=== PATIENT | male | born 1995 | race Native Hawaiian/Other Pacific Islander ===

== ENCOUNTER 2020-05-23 12:32 | Outpatient (REF) | payer OTHER, MEDICAID, SELFPAY | END 2020-05-23 12:33 | disposition home or self-care (01) | LOC: HO.LAB 12:32 | PROVIDERS: PCP Nurse Practitioner Family; Visit Provider Internal Medicine | DX: Z20.828 Contact with and (suspected) exposure to other viral communicable diseases (principal) | CPT/HCPCS: C9803; U0003 ==

== ENCOUNTER 2020-06-22 14:10 | Outpatient (REF) | payer OTHER, MEDICAID, SELFPAY | END 2020-06-22 14:11 | disposition home or self-care (01) | LOC: HO.LAB 14:10 | PROVIDERS: PCP Nurse Practitioner Family; Visit Provider Internal Medicine | DX: Z20.828 Contact with and (suspected) exposure to other viral communicable diseases (principal) | CPT/HCPCS: C9803; U0003 ==

== ENCOUNTER 2020-07-12 10:39 | Outpatient (REF) | payer MEDICAID, SELFPAY | END 2020-07-12 10:40 | disposition home or self-care (01) | LOC: HO.LAB 10:39 | PROVIDERS: Visit Provider Internal Medicine | DX: Z20.828 Contact with and (suspected) exposure to other viral communicable diseases (principal) | CPT/HCPCS: C9803; U0003 ==

== ENCOUNTER 2020-07-25 17:16 | Outpatient (REF) | payer MEDICAID, SELFPAY | END 2020-07-25 17:17 | disposition home or self-care (01) | LOC: HO.LAB 17:16 | PROVIDERS: Visit Provider Internal Medicine | DX: Z20.822 Contact with and (suspected) exposure to COVID-19 (principal) | CPT/HCPCS: 36415; C9803; U0003 ==

== ENCOUNTER 2020-08-08 17:13 | Outpatient (REF) | payer OTHER, MEDICAID, SELFPAY | END 2020-08-08 17:14 | disposition home or self-care (01) | LOC: HO.LAB 17:13 | PROVIDERS: Visit Provider Internal Medicine | DX: Z20.822 Contact with and (suspected) exposure to COVID-19 (principal) | CPT/HCPCS: 36415; C9803; U0003 ==

== ENCOUNTER 2020-08-18 14:25 | Outpatient (REF) | payer MEDICAID, SELFPAY | END 2020-08-18 14:26 | disposition home or self-care (01) | LOC: HO.LAB 14:25 | PROVIDERS: Visit Provider Internal Medicine | DX: Z20.822 Contact with and (suspected) exposure to COVID-19 (principal) | CPT/HCPCS: 36415; C9803; U0003; U0005 ==

== ENCOUNTER 2020-09-07 12:27 | Outpatient (REF) | payer OTHER, MEDICAID, SELFPAY | END 2020-09-07 12:28 | disposition home or self-care (01) | LOC: HO.LAB 12:27 | PROVIDERS: Visit Provider Internal Medicine | DX: Z20.822 Contact with and (suspected) exposure to COVID-19 (principal) | CPT/HCPCS: 36415; C9803; U0003; U0005 ==

== ENCOUNTER 2021-01-03 10:44 | Outpatient (REF) | payer OTHER, MEDICAID, SELFPAY ==
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
== END 2021-01-03 10:45 | disposition home or self-care (01) ==
LOC: HO.HMGCX 10:44
PROVIDERS: PCP Nurse Practitioner Family; Visit Provider Nurse Practitioner Family
DX: M25.511 Pain in right shoulder (principal); M25.551 Pain in right hip; V29.9XXA Motorcycle rider (driver) (passenger) injured in unspecified traffic accident, initial encounter
CPT/HCPCS: 73030; 73502

== ENCOUNTER 2021-01-30 12:16 | Outpatient (REF) | payer OTHER, MEDICAID, SELFPAY ==
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
== END 2021-01-30 12:17 | disposition home or self-care (01) ==
LOC: HO.HMGCX 12:16
PROVIDERS: PCP Nurse Practitioner Family; Visit Provider Hospitalist
DX: S49.91XD Unspecified injury of right shoulder and upper arm, subsequent encounter (principal)
CPT/HCPCS: 73030

== ENCOUNTER 2024-01-27 19:47 | Emergency (ER) | payer MEDICAID, SELFPAY ==
--- NOTE | ~2024-01-27 | XR_ITS ---
EXAMINATION: XR CHEST CLINICAL INFORMATION: Chest the sensitivity, tightness and pain for one week on left side. COMPARISON: Chest radiograph dated 10/14/2017. TECHNIQUE: 2 views of the chest were obtained. FINDINGS: The heart is normal in size. The lungs are clear. Pleural spaces are clear. No pneumothorax. No acute osseous abnormality. XR/XR chest 2V IMPRESSION: No acute cardiopulmonary disease.
--- NOTE | 2024-01-27 19:49 | ECG_ITS ---
Test Reason : CHEST PAIN Blood Pressure : / mmHG Vent. Rate : 069 BPM Atrial Rate : 069 BPM P-R Int : 176 ms QRS Dur : 088 ms QT Int : 396 ms P-R-T Axes : 028 039 029 degrees QTc Int : 424 ms Normal sinus rhythm Normal ECG When compared with ECG of 14-OCT-2017 17:47, No significant change was found Referred By: Lucia Powell Electronically Signed By:THAIS CRUZ MD
[2024-01-27 19:55] VITALS: BP 121/67; PULSE 65; RESP 18; TEMP 36.6; O2SAT 99; BMI 32.3
--- NOTE | 2024-01-27 20:02 | ED_ITS ---
HPI - Chest Pain General Chief Complaint: Chest Pain Stated Complaint: Chest pain x1 week Time Seen by Provider: 01/27/24 22:50 Source: patient Mode of arrival: ambulatory Limitations: no limitations History of Present Illness HPI narrative: Patient is a 28 old male who presents emergency department for evaluation of chest pain. Reports approximately 2 weeks ago he felt a tightness in his chest that felt very stiff, after beginning a new workout regimen with pushups. He was attempting to stretch the area daily, performing [id number] exercises to the shoulders to ?loosen the chest muscles?. Over the past week, he reports feeling increased pain over the left side of his chest, has been there pretty constantly, is described as a tightness, increases when pressing on this area of the chest. He denies history of similar pain in the past, he denies associated dizziness, lightheadedness, neck pain, neck stiffness, shortness of breath, nausea, vomiting, abdominal pain, numbness or tingling of his extremities. He denies any pertinent past medical history. Denies any recent trauma or injury. Related Data Previous Rx's ?Medication ?Instructions ?Recorded dexamethasone 4 mg tablet 4 mg PO .COMPLEX #18 tabs 09/12/20 prednisone 20 mg tablet 20 mg PO .COMPLEX #18 tabs 01/30/21 cyclobenzaprine 10 mg tablet 10 mg PO TID PRN muscle spasm #30 02/06/21 tabs naproxen 500 mg tablet 500 mg PO BID PRN pain #30 tabs 02/06/21 Allergies Allergy/AdvReac Type Severity Reaction Status Date / Time penicillin V Allergy Unknown Hives, Verified 01/27/24 20:00 Anaphylaxis Penicillins [PENICILLINS] Allergy Unknown UNKNOWN Verified 01/27/24 20:00 Review of Systems 2 Review of Systems: Yes all other systems are reviewed and are negative PMFSH Past Medical History Attestation statement: The following information was validated with the patient. Source: old records reviewed Social History Social History Smoked in Last 30 Days: No Use of substances other than those prescribed or required for medical reasons: No Advance Directives: No Advance Directives Information Provided: No Do you have a plan to hurt others: No Plan Physical Exam 2 Vital Signs: Vital Signs: Last Vital Signs Temp 98.0 F 01/27/24 23:45 Pulse 83 01/27/24 23:45 Resp 16 01/27/24 23:45 BP 152/98 H 01/27/24 23:45 Pulse Ox 96 01/27/24 23:45 O2 Del Method Room Air 01/27/24 23:45 BMI result Body Mass Index 32.3 Appearance: Alert.?Oriented to person, place and time. No acute distress.?Normal affect. Eyes: Pupils equal, round and reactive to light.? ENT: Pharynx normal.?? Neck: Normal inspection.? Neck supple.?? CVS: Heart sounds normal. Normal heart rate and rhythm.? Pulses normal.?? Respiratory: No respiratory distress.? Lung sounds clear to auscultation bilaterally??tenderness upon palpation of the left anterior chest wall Abdomen: Soft and non-tender. Normoactive bowel sounds. No pulsatile mass.?? Skin: Skin warm and dry.? Normal skin color.? Extremities: No lower extremity edema.? No calf ttp? Neuro: Moves all extremities spontaneously. Sensation intact bilaterally. Ambulates with normal steady gait. Course Course Course Narrative: RME performed by Lucia Powell PA-C. Patient is a 28 year old assigned male at presenting to the emergency department with chest pain. Detailed physical exam and review of systems are deferred to the sheet metal technician. EKG, labs, imaging, and swabs ordered. Patient placed back in the waiting room pending room availability and results. Medical Decision Making Medical Decision Making MDM Narrative: Patient is a 28-year-old male who presents emergency department for evaluation of chest pain as per HPI. Overall appears well, nontoxic, afebrile. He is obese, otherwise does not have acute risk factors for ACS denies significant family cardiac history. PERC negative, unlikely pulmonary embolism. No recent URI symptoms to suggest infectious etiology. Based on history and physical examination I suspect that symptoms are most consistent with strain versus costochondritis. CXR is without evidence of consolidation infiltrate to suggest pneumonia. EKG reveals a normal sinus rhythm with ventricular rate of 69, QTC 424, high sensitive troponin below detectable limits, not consistent with ACS. Viral panel is negative. CBC and CMP are unremarkable. Discussed rest, ice/heat, anti-inflammatory; NSAID, outpatient follow-up with primary care provider. Advised strict return precautions. All questions answered. Stable for discharge home Differential Diagnosis Differential Diagnoses: The differential diagnosis associated with the presentation includes (See narrative above) Admission/Observation Consideration of admission/observation: Escalation of care including admission/observation considered (See narrative above) Lab Data MDM Lab Attestation statement: I reviewed the patient's lab results. (See narrative above) 01/27/24 20:37 01/27/24 20:37 Labs: Lab Results 01/27/24 Range/Units 20:37 WBC 8.8 (4.8-10.8) X10*3/uL RBC 4.88 (4.60-5.80) X10*6/uL Hgb 14.6 (14.0-18.0) g/dl Hct 42.7 (42.0-52.0) % MCV 87.5 (80.0-98.0) fL MCH 29.9 (27.0-33.0) pg MCHC 34.2 (31.0-36.0) g/dl RDW 12.3 (11.0-16.0) % Plt Count 195 (160-400) X10*3/uL MPV 10.1 (9.4-12.4) fL Immature Gran % (Auto) 0.2 (0.0-0.4) % Neut % (Auto) 59.9 (45-73) % Lymph % (Auto) 33.3 (20-40) % [place] % (Auto) 5.6 (2-11) % Eos % (Auto) 0.7 (0-4) % Baso % (Auto) 0.3 (0-2) % Lymph # (Auto) 2.9 (1.2-4.9) X10*3/uL [place] # (Auto) 0.5 (0.1-1.2) X10*3/uL Eos # (Auto) 0.1 (0.0-0.4) X10*3/uL Baso # (Auto) 0.0 (0.0-0.2) X10*3/uL Abs Immat Gran (auto) 0.02 (0.00-0.03) X10*3/uL Absolute Neuts (auto) 5.2 (2.0-8.3) x10*3/uL Absolute Nucleated RBC 0.000 (0.0-0.012) X10*3/uL Nucleated RBC % (auto) 0.0 (0.0-0.2) /100WBC Sodium 144 (135-145) mmol/L Potassium 4.2 (3.3-5.1) mmol/L Chloride 107 (96-108) mmol/L Carbon Dioxide 28 (22-29) mmol/L Anion Gap 13 (12-20) BUN 16 (9-16) mg/dL Creatinine 0.95 (0.5-1.4) mg/dL Estim Creat Clear Calc 131.9 Estimated GFR > 60 Random Glucose 87 (60-115) mg/dL Calcium 9.9 (8.4-10.2) mg/dL Magnesium 2.1 (1.6-2.6) mg/dL Total Bilirubin 0.9 (0.0-1.0) mg/dL AST 15 (5-37) U/L ALT 17 (0-40) U/L Alkaline Phosphatase 65 (39-117) U/L Troponin I High Sens < 2.7 (<3.5-35.0) ng/L Total Protein 7.9 (6.5-8.0) g/dL Albumin 4.6 (3.5-5.0) g/dL Influenza Type A (PCR) NEGATIVE (Negative) Influenza Type B (PCR) NEGATIVE (Negative) RSV RNA Qual (PCR) NEGATIVE (Negative) SARS-CoV-2 RNA (RT-PCR) NEGATIVE (Negative) Independent Interpretation I performed an independent interpretation of an: EKG (See narrative above) and Plain X-Ray (See narrative above) Radiology Impression Discussion of test interpretation with radiology: I have reviewed the radiologist's reading. Radiologist Impression: XR/XR chest 2V IMPRESSION: No acute cardiopulmonary disease. External Record Review External record reviewed: Outpatient record Prescription Management I considered prescription management with: Pain Medication (See narrative above) Discharge Plan Discharge Clinical Impression: Chest pain Patient Disposition: Home, Self-Care Instructions: Noncardiac Chest Pain (ED) Additional Instructions: As discussed, please be sure to rest, perform gentle stretching exercises but avoid any heavy lifting, pushups etc. that may worsen your pain. You can take ibuprofen 200 mg, 3 tablets (600mg) every 6-8 hours as needed for pain, in addition to Tylenol 500 mg, 2 tablets (1,000mg) every 4-6 hours as needed for pain, but not to exceed 3 doses daily (3,000mg).? Follow-up with your primary care provider. Return back to emergency department any new or worsening symptoms or concerns Prescriptions: No Action dexamethasone 4 mg tablet 4 mg PO .COMPLEX Qty: 18 0RF Rx Instructions: 4 mg PO One p.o. t.i.d. for 3 days, 1 p.o. b.i.d. for 3 days, 1 p.o. daily for 3 days; prednisone 20 mg tablet 20 mg PO .COMPLEX Qty: 18 0RF Rx Instructions: 20 mg PO 3 p.o. daily for 3 days followed by 2 p.o. daily for 3 days followed by 1 p.o. daily for 3 days; cyclobenzaprine 10 mg tablet 10 mg PO TID PRN (Reason: muscle spasm) Qty: 30 0RF naproxen 500 mg tablet 500 mg PO BID PRN (Reason: pain) Qty: 30 0RF Referrals: Ahsan Kirkpatrick, APPLICATION PERFORMANCE ENGINEER-BC [Primary Care Provider] - Interventions: ED Discharge Assessment Last Done: 01/27/24 23:45 Discharge Date/Time: 01/27/24 23:46 Print Language: Sami
[2024-01-27 20:42] LABS: Basophils Percent Auto 0.3 % (0-2); Eosinophils Absolute Auto 0.1 X10*3/uL (0.0-0.4); Eosinophils Percent Auto 0.7 % (0-4); Hematocrit 42.7 % (42.0-52.0); Hemoglobin 14.6 g/dl (14.0-18.0); Imm Gran Abs Auto 0.02 X10*3/uL (0.00-0.03); Imm Gran Pct Auto 0.2 % (0.0-0.4); Lymphocytes Absolute Auto 2.9 X10*3/uL (1.2-4.9); Lymphocytes Percent Auto 33.3 % (20-40); MANUAL DIFF FLAG NO; Mean Corpuscular HGB Conc 34.2 g/dl (31.0-36.0); Mean Corpuscular Hemoglobin 29.9 pg (27.0-33.0); Mean Corpuscular Volume 87.5 fL (80.0-98.0); Mean Platelet Volume 10.1 fL (9.4-12.4); Monocytes Absolute Auto 0.5 X10*3/uL (0.1-1.2); Monocytes Percent Auto 5.6 % (2-11); Neutrophils Absolute Auto 5.2 x10*3/uL (2.0-8.3); Neutrophils Percent Auto 59.9 % (45-73); Platelet Count 195 X10*3/uL (160-400); Red Blood Count 4.88 X10*6/uL (4.60-5.80); Red Cell Distribution Width 12.3 % (11.0-16.0); White Blood Count 8.8 X10*3/uL (4.8-10.8)
[2024-01-27 21:07] LABS: Alanine Aminotransferase 17 U/L (0-40); Albumin Level 4.6 g/dL (3.5-5.0); Alkaline Phosphatase 65 U/L (39-117); Anion Gap 13 (12-20); Aspartate Amino Transferase 15 U/L (5-37); Bilirubin Total 0.9 mg/dL (0.0-1.0); Blood Urea Nitrogen 16 mg/dL (9-16); Calcium 9.9 mg/dL (8.4-10.2); Carbon Dioxide 28 mmol/L (22-29); Chloride 107 mmol/L (96-108); Creatinine Clr Calc Pharmacy 131.9; Estimated Glomerular Filt Rate > 60; Glucose Random 87 mg/dL (60-115); Magnesium 2.1 mg/dL (1.6-2.6); Potassium 4.2 mmol/L (3.3-5.1); Sodium 144 mmol/L (135-145); Total Protein 7.9 g/dL (6.5-8.0)
[2024-01-27 21:15] LABS: Troponin-I High Sensitivity < 2.7 ng/L (<3.5-35.0)
[2024-01-27 21:18] LABS: Influenza A PCR NEGATIVE (Negative); Influenza B PCR NEGATIVE (Negative); Resp Syncy Virus RNA Qual PCR NEGATIVE (Negative); SARS COV2 PCR INHOUSE NEGATIVE (Negative)
[2024-01-27 23:09] VITALS: BP 121/75; PULSE 66; RESP 16; O2SAT 100
[2024-01-27 23:36] VITALS: BP 125/74; PULSE 62; RESP 17; O2SAT 100
[2024-01-27 23:45] VITALS: BP 152/98; PULSE 83; RESP 16; TEMP 36.7; O2SAT 96
== END 2024-01-27 23:46 | disposition home or self-care (01) ==
PROVIDERS: Physician Assistant Medical; Emergency Provider Emergency Medicine; PCP Nurse Practitioner Family
DX: R07.89 Other chest pain (principal); Z03.818 Encounter for observation for suspected exposure to other biological agents ruled out; Z79.899 Other long term (current) drug therapy
CPT/HCPCS: 0241U; 71046; 80053; 83735; 84484; 85025; 93005; 99283; 99284

== ENCOUNTER → 2024-01-27 19:49 | Outpatient (BNV) | payer MEDICAID, SELFPAY | PROVIDERS: Emergency Provider Emergency Medicine; PCP Nurse Practitioner Family; Visit Provider Internal Medicine Cardiovascular Disease | DX: R07.9 Chest pain, unspecified (principal) | CPT/HCPCS: 93010 ==

== ENCOUNTER 2024-02-29 21:52 | Emergency (ER) | payer MEDICAID, SELFPAY ==
--- NOTE | 2024-02-29 | ECG_ITS ---
Test Reason : chest pain Blood Pressure : / mmHG Vent. Rate : 071 BPM Atrial Rate : 071 BPM P-R Int : 172 ms QRS Dur : 088 ms QT Int : 386 ms P-R-T Axes : 037 039 032 degrees QTc Int : 419 ms Normal sinus rhythm Normal ECG When compared with ECG of 27-JAN-2024 19:50, No significant change was found Referred By: Generic ED Physician Electronically Signed By:ZORAIDA RICHARDS
--- NOTE | ~2024-02-29 | XR_ITS ---
EXAMINATION: XR CHEST CLINICAL INFORMATION: Chest pain. COMPARISON: 01/27/2024. TECHNIQUE: 2 views of the chest were obtained. FINDINGS: No significant abnormality is noted involving the heart, lungs, mediastinum, bony thorax or soft tissues. XR/XR chest 2V IMPRESSION: Unremarkable examination.
[2024-02-29 22:07] VITALS: BP 124/85; PULSE 76; RESP 17; TEMP 36.7; O2SAT 97; BMI 31.8
[2024-02-29 22:39] LABS: MANUAL DIFF FLAG NO
[2024-02-29 22:42] LABS: Basophils Percent Auto 0.4 % (0-2); Eosinophils Absolute Auto 0.1 X10*3/uL (0.0-0.4); Eosinophils Percent Auto 0.6 % (0-4); Hematocrit 42.3 % (42.0-52.0); Hemoglobin 14.6 g/dl (14.0-18.0); Imm Gran Abs Auto 0.01 X10*3/uL (0.00-0.03); Imm Gran Pct Auto 0.1 % (0.0-0.4); Lymphocytes Absolute Auto 3.2 X10*3/uL (1.2-4.9); Lymphocytes Percent Auto 37.3 % (20-40); Mean Corpuscular HGB Conc 34.5 g/dl (31.0-36.0); Mean Platelet Volume 10.1 fL (9.4-12.4); Monocytes Absolute Auto 0.6 X10*3/uL (0.1-1.2); Monocytes Percent Auto 6.9 % (2-11); Neutrophils Absolute Auto 4.6 x10*3/uL (2.0-8.3); Neutrophils Percent Auto 54.7 % (45-73); Platelet Count 180 X10*3/uL (160-400); Red Blood Count 4.86 X10*6/uL (4.60-5.80); Red Cell Distribution Width 11.9 % (11.0-16.0); White Blood Count 8.4 X10*3/uL (4.8-10.8)
[2024-02-29 22:57] LABS: Alanine Aminotransferase 14 U/L (0-40); Albumin Level 4.6 g/dL (3.5-5.0); Alkaline Phosphatase 70 U/L (39-117); Anion Gap 12 (12-20); Aspartate Amino Transferase 13 U/L (5-37); Bilirubin Direct 0.2 mg/dL (0.0-0.5); Bilirubin Total 0.9 mg/dL (0.0-1.0); Blood Urea Nitrogen 16 mg/dL (9-16); Calcium 9.7 mg/dL (8.4-10.2); Carbon Dioxide 27 mmol/L (22-29); Chloride 108 mmol/L (96-108); Creatinine Clr Calc Pharmacy 133.9; Estimated Glomerular Filt Rate > 60; Glucose Random 95 mg/dL (60-115); Lipase 15 U/L (8-78); Potassium 3.7 mmol/L (3.3-5.1); Sodium 143 mmol/L (135-145); Total Protein 7.9 g/dL (6.5-8.0)
[2024-02-29 23:04] LABS: Troponin-I High Sensitivity < 2.7 ng/L (<3.5-35.0)
--- NOTE | 2024-03-01 00:14 | ED.CHESTPAIN ---
HPI - Chest Pain General Chief Complaint: Chest Pain Stated Complaint: chest pain Time Seen by Provider: 03/01/24 00:14 History of Present Illness ED Provider: Lena WHITESIDE narrative: 28-year-old male who presents complaining of ongoing discomfort that he experiences in his chest. He was here one month ago and was diagnosed with chest wall pain. He says that he did not get any better with ibuprofen. He says that he has had to stop weight lifting and doing pushups because of the pain. He now feels that his chest wall looks different. The patient says that he wanted to follow up with his PCP but was given an appointment in March. The patient says, as a separate issue, that he has become addicted to pills that he buys on the street that he thinks might be like Percocet. He wonders if they might contain fentanyl. He says that he has contacted detox is as an outpatient but has not been able to get a referral. He says that he has been taking the pills for about 2 years. The patient does not take any regular medications aside from the pills he buys on the streets. Related Data Previous Rx's ?Medication ?Instructions ?Recorded dexamethasone 4 mg tablet 4 mg PO .COMPLEX #18 tabs 09/12/20 prednisone 20 mg tablet 20 mg PO .COMPLEX #18 tabs 01/30/21 cyclobenzaprine 10 mg tablet 10 mg PO TID PRN muscle spasm #30 02/06/21 tabs naproxen 500 mg tablet 500 mg PO BID PRN pain #30 tabs 02/06/21 Allergies Allergy/AdvReac Type Severity Reaction Status Date / Time penicillin V Allergy Unknown Hives, Verified 02/29/24 22:10 Anaphylaxis Penicillins [PENICILLINS] Allergy Unknown UNKNOWN Verified 01/27/24 20:00 Review of Systems Review of Systems: Yes all other systems are reviewed and are negative [facility] Social History Social History Advance Directives: No Advance Directives Information Provided: No Do you have a plan to hurt others: No Plan Physical Exam Vital Signs: Vital Signs: Last Vital Signs Temp 98.4 F 03/01/24 01:42 Pulse 70 03/01/24 01:42 Resp 12 03/01/24 01:42 BP 105/61 03/01/24 01:42 Pulse Ox 98 03/01/24 01:42 O2 Del Method Room Air 03/01/24 01:42 BMI result Body Mass Index 31.8 Const: Other: The patient is awake and alert. He does not appear in any distress. He was very verbose about his symptoms. HEENT: Head: Yes normal to inspection Face and sinus: Yes normal facial exam Mouth: Normal oral and palatal mucosa present Throat: Yes posterior oropharynx normal Eyes: General: appearance normal, both eyes and all related structures Alignment and Position: alignment normal Eyelids: Yes eyelids normal Conjunctivae: conjunctivae normal Pupils: Equal, round and reactive pupils present EOM: EOMs intact bilaterally Neck: Neck: Yes normal visual inspection, Yes full ROM, Yes no lymphadenopathy and Yes no meningeal signs Chest: Other: The patient has a great deal of generalized anterior chest wall tenderness. He winces with palpation of the anterior chest. Resp: Effort & Inspection: normal respiratory effort Auscultation: clear to auscultation bilaterally Cardio: Rate: regular rate Rhythm: regular rhythm Heart sounds: S1 normal heart sound present and S2 normal heart sound present GI: Other: Abdomen is soft and nontender Skin: Other: Skin is dry and unremarkable. No lesions or bruises or any other abnormalities. Neuro: Other: The patient was awake and alert. Cranial nerves 2-12 grossly intact. Moves all 4 extremities normally and seems grossly neurologically intact. General: no meningeal signs Cranial nerves: Yes Equal, round and reactive pupils present Extrem: Other: No calf swelling or tenderness. No asymmetry. No edema. Medications Administered Discontinued Medications Generic Name Dose Route Start Last Admin Trade Name Marcel PRN Reason Stop Dose Admin Acetaminophen 975 mg 03/01/24 01:46 03/01/24 01:51 Acetaminophen 325 Mg Tablet PO 03/01/24 01:47 975 mg ONCE ONE Administration Ketorolac Tromethamine 30 mg 03/01/24 01:45 03/01/24 01:51 Ketorolac Tromethamine 30 Mg/Ml Vial IM 03/01/24 01:46 30 mg ONCE ONE Administration Medical Decision Making Medical Decision Making [facility] Narrative: The patient is a 28-year-old male who returns to the emergency room with a complaint of chest pain that seems highly consistent with chest wall pain. He has exquisite of the anterior chest on both sides of the sternum and this tenderness seems to reproduce his pain. He is PERC negative. His EKG is normal. His troponin is negative. His symptoms have been bothering him on an almost daily basis for a month. He looks entirely well. The patient also told me that he has been taking that like pills that he buys on the street for approximately 2 years and he thinks he has probably addicted to these medications. He denies any IV drug use. I explained to the patient that his chest pain syndrome still seems to be chest wall pain. I did not think there was any problem with his heart or any other internal organ which might put his health at risk. I further explained I thought a larger issue for him was his abuse of the medication advise on the street. He says he has called [facility] for detox but was told that he needed a referral from his PCP. I will give him the contact information for the [facility] addiction Medicine office. Otherwise the patient looked well and felt comfortable being discharged. Lab Data 02/29/24 22:35 02/29/24 22:35 Labs: Lab Results 02/29/24 Range/Units 22:35 WBC 8.4 (4.8-10.8) X10*3/uL RBC 4.86 (4.60-5.80) X10*6/uL Hgb 14.6 (14.0-18.0) g/dl Hct 42.3 (42.0-52.0) % MCV 87.0 (80.0-98.0) fL MCH 30.0 (27.0-33.0) pg MCHC 34.5 (31.0-36.0) g/dl RDW 11.9 (11.0-16.0) % Plt Count 180 (160-400) X10*3/uL MPV 10.1 (9.4-12.4) fL Immature Gran % (Auto) 0.1 (0.0-0.4) % Neut % (Auto) 54.7 (45-73) % Lymph % (Auto) 37.3 (20-40) % [place] % (Auto) 6.9 (2-11) % Eos % (Auto) 0.6 (0-4) % Baso % (Auto) 0.4 (0-2) % Lymph # (Auto) 3.2 (1.2-4.9) X10*3/uL [place] # (Auto) 0.6 (0.1-1.2) X10*3/uL Eos # (Auto) 0.1 (0.0-0.4) X10*3/uL Baso # (Auto) 0.0 (0.0-0.2) X10*3/uL Abs Immat Gran (auto) 0.01 (0.00-0.03) X10*3/uL Absolute Neuts (auto) 4.6 (2.0-8.3) x10*3/uL Absolute Nucleated RBC 0.000 (0.0-0.012) X10*3/uL Nucleated RBC % (auto) 0.0 (0.0-0.2) /100WBC Sodium 143 (135-145) mmol/L Potassium 3.7 (3.3-5.1) mmol/L Chloride 108 (96-108) mmol/L Carbon Dioxide 27 (22-29) mmol/L Anion Gap 12 (12-20) BUN 16 (9-16) mg/dL Creatinine 0.93 (0.5-1.4) mg/dL Estim Creat Clear Calc 133.9 Estimated GFR > 60 Random Glucose 95 (60-115) mg/dL Calcium 9.7 (8.4-10.2) mg/dL Total Bilirubin 0.9 (0.0-1.0) mg/dL Direct Bilirubin 0.2 (0.0-0.5) mg/dL AST 13 (5-37) U/L ALT 14 (0-40) U/L Alkaline Phosphatase 70 (39-117) U/L Troponin I High Sens < 2.7 (<3.5-35.0) ng/L Total Protein 7.9 (6.5-8.0) g/dL Albumin 4.6 (3.5-5.0) g/dL Lipase 15 (8-78) U/L Independent Interpretation I performed an independent interpretation of an: EKG Interpretation: EKG at 21:50 shows normal sinus rhythm at 71 beats per minute. This is a normal EKG. No change from previous EKG. Discharge Plan Discharge Clinical Impression: Chest wall pain, Substance use disorder Patient Disposition: Home, Self-Care Instructions: Chest Wall Pain (ED) Additional Instructions: It still seems to be the case that your chest pain seems to be coming from your chest wall rather than a problem with your heart or any other internal organ. May use ibuprofen and acetaminophen as needed for the pain. I suspect that your addiction to the pills that you have been buying on the street is probably more worrisome. You have been provided with the contact information for the addiction Medicine office here at [facility]. Please call the office on Saturday morning to try to get an appointment to discuss your situation further. Also plan on following up with your regular doctor. Return to the emergency room if worse. Prescriptions: No Action dexamethasone 4 mg tablet 4 mg PO .COMPLEX Qty: 18 0RF Rx Instructions: 4 mg PO One p.o. t.i.d. for 3 days, 1 p.o. b.i.d. for 3 days, 1 p.o. daily for 3 days; prednisone 20 mg tablet 20 mg PO .COMPLEX Qty: 18 0RF Rx Instructions: 20 mg PO 3 p.o. daily for 3 days followed by 2 p.o. daily for 3 days followed by 1 p.o. daily for 3 days; cyclobenzaprine 10 mg tablet 10 mg PO TID PRN (Reason: muscle spasm) Qty: 30 0RF naproxen 500 mg tablet 500 mg PO BID PRN (Reason: pain) Qty: 30 0RF Referrals: Ahsan Kirkpatrick FNP-SONYA [Primary Care Provider] - (chest wall pain, substance use disorder) Soheila Gatica CNP [Nurse Practitioner] - (opioid addiction) Print Language: Turkish
[2024-03-01 00:16] VITALS: BP 119/71; PULSE 65; RESP 16; TEMP 36.8; O2SAT 98
[2024-03-01 01:42] VITALS: BP 105/61; PULSE 70; RESP 12; TEMP 36.9; O2SAT 98
[2024-03-01] MEDS: Ketorolac Tromethamine 30 MG/ML VIAL IM (01:51)
[2024-03-01] MEDS: Acetaminophen 325 MG TABLET 975 MG PO (01:51)
[2024-03-01 02:00] VITALS: BP 105/61; PULSE 70; RESP 12; TEMP 36.9; O2SAT 98
== END 2024-03-01 02:00 | disposition home or self-care (01) ==
PROVIDERS: Emergency Provider Emergency Medicine; PCP Nurse Practitioner Family
DX: R07.89 Other chest pain (principal); F19.90 Other psychoactive substance use, unspecified, uncomplicated
CPT/HCPCS: 36415; 71046; 80048; 80076; 83690; 84484; 85025; 93005; 96372; 99284; J1885

== ENCOUNTER 2024-04-13 15:05 | Outpatient (AMB) | payer MEDICAID, SELFPAY ==
[2024-04-13 15:12] VITALS: BP 102/68; PULSE 88; O2SAT 99; BMI 30.6
--- NOTE | 2024-04-13 15:12 | A.OFFPC_ITS ---
Vital Signs 04/13/24 15:12 Height 5 ft 9 in Weight 207 lb BMI 30.6 BP 102/68 Blood Pressure Location Lt brachial Position Sitting Pulse 88 Pulse Source Pulse Oximeter Pulse Oximetry (%) 99 Oxygen Delivery Method Room Air Intake Visit Reasons: chest pain Intake Note: Pt is here today as a new patient c/o chestpain. Allergies penicillin V Allergy (Unknown, Verified 04/13/24 16:35) Hives, Anaphylaxis Penicillins [PENICILLINS] Allergy (Unknown, Verified 04/13/24 16:35) UNKNOWN Medication List - Last Reconciled 04/13/24 by Ahsan Kirkpatrick, PARAMEDIC SUPERVISOR- meloxicam 15 mg PO DAILY PRN 20 days Tobacco use date assessed: 04/13/24 Dental Screening Dental Screen Date: 04/13/24 Did you have a dental visit in the last 12 months?: Yes Did you have a dental problem in the last 6 months where you did not have access to dental care?: No Was dental information given to patient?: Patient has dentist HPI chest pain HPI Details Pt was seen in the ER on 03/01 c/o chest pain. He had been seen previously and was diagnosed with chest wall pain. EKG was normal. Troponin was negative. Pt's symptoms were thought to be chest wall pain. Previous chest XRs have been negative. He reports ongoing sternal/pectoral discomfort that is worse with movement. Pt reports that the pain is reproducible with palpation. Pt reports that this does not affect his breathing. He does not smoke. ? costochondritis. EKG done in office today (NSR). Will order labs and chest CT. Denies fever, chills, and shortness of breath. [facility] Social History Housing: Apartment e-Cigarette/Vaping Use: Never Used service: No Current occupational status: employed Cognitive needs: No Hearing needs: No Vision needs: No Questionnaire PHQ-9 Over the last 2 weeks, how often have you been bothered by any of the following problems? 1. Little interest or pleasure in doing things: several days 2. Feeling down, depressed, or hopeless: several days 3. Trouble falling or staying asleep, or sleeping too much: several days 4. Feeling tired or having little energy: several days 5. Poor appetite or overeating: several days 6. Feeling bad about yourself - or that you are a failure or have let yourself or your family down: not at all 7. Trouble concentrating on things, such as reading the newspaper or watching television: not at all 8. Moving or speaking so slowly that other people could have noticed. Or the opposite - being so fidgety or restless that you have been moving around a lot more than usual: not at all 9. Thoughts that you would be better off or of hurting yourself in some way: not at all Total score: 5 Depression Screening Interpretation: Negative Depression Screening Done: Yes 21133 - PHQ-9 Billing: Yes Source: Developed by Drs. David Madison, Jasmine Grant, Karan Vaughn and colleagues, with an educational stephanie from [employer]. Thrive Questionnaire Date Thrive assessed: 04/13/24 I am a: Patient What is your living situation today?: I choose not to answer this question Within the past 12 months, did the food you bought not last and you didn't have the money to get more?: Never true Within the past 12 months, did you worry whether your food would run out before you got money to buy more?: Never true Do you have trouble paying for medicines?: I choose not to answer this question Do you have trouble getting transportation to medical appointments?: I choose not to answer this question Do you have trouble paying your heating and electricity bill?: I choose not to answer this question Do you have trouble taking care of your child, family member or friend?: I choose not to answer this question Do you have trouble with day-to-day activities such as bathing, preparing meals, shopping, managing finances, etc.?: Yes Are you currently unemployed and looking for a job?: No Are you interested in more education?: I choose not to answer this question Please select the resources that you would like help with: None Currently or been in a relationship where the following occur: I choose not to answer THRIVE Score: 0 AUDIT C Alcohol Use Questionnaire (AUDIT-C) 1. How often do you have a drink containing alcohol?: Never 3. How often do you have six or more drinks on one occasion?: Never Total Score: 0 Score Reviewed/Action Taken: Yes SALVADOR-7 AMB Questionnaire SALVADOR-7 Date SALVADOR - 7 assessed: 04/13/24 Feeling nervous, anxious, or on edge: 1 = Several days Not being able to stop or control worryin = Not at all Worrying too much about different things: 0 = Not at all Trouble relaxin = Not at all Being so restless that it is hard to sit still: 1 = Several days Becoming easily annoyed or irritable: 1 = Several days Feeling afraid as if something awful might happen: 0 = Not at all Total SALVADOR-7 score (0-4 normal; 5-9 mild; 10-14 moderate; 15-21 severe): 3 Source: Developed by Drs. David Madison, Jasmine Grant, Karan Vaughn and colleagues, with an educational stephanie from [employer]. SALVADOR-7 Assessment Billing SALVADOR-7 Assessment Tool: SALVADOR-7 Assessment 31663 Review of Systems Const Reports as per HPI Physical exam (Primary Care) Vital Signs: Last Vital Signs Pulse 88 04/13/24 15:12 BP 102/68 04/13/24 15:12 Pulse Ox 99 04/13/24 15:12 Oxygen Delivery Method Room Air 04/13/24 15:12 BMI result Body Mass Index 30.6 Tobacco/Smoking Status: Tobacco use Status Tobacco use date assessed 04/13/24 04/13/24 15:24 e-Cigarette/Vaping Use Never Used 04/13/24 15:24 PHQ-9: PHQ-9 Score PHQ-9: Total score 5 04/13/24 15:28 Depression Screening Interpretation: Negative Thrive Assessment: Date of Thrive Assessment Date Thrive assessed 04/13/24 04/13/24 15:27 Currently or been in a relationship where the following occur: I choose not to answer Const General: cooperative Orientation/consciousness: patient oriented x3 Chest Other: tenderness with palpation of upper chest and sternal borders, tenderness noted with moving upper torso side to side Resp Effort & Inspection: normal respiratory effort Auscultation: clear to auscultation bilaterally Cardio Rate: regular rate Rhythm: regular rhythm Heart sounds: S1 normal heart sound present and S2 normal heart sound present Neuro General: patient oriented x3 Psych Appearance: grossly normal Mental Status: mental status grossly normal Speech and movement: Normal speech and movement present Affect: normal affect Attitude: cooperative Thought process: Normal thought process present Thought content: Normal thought content present Insight: Good insight present (Psych) Judgement: Good judgement present (Psych) Assessment and Plan Assessment & Plan (1) Chest pain: Code(s): R07.9 - Chest pain, unspecified Plan: Labs and CT ordered (2) Chest discomfort: Code(s): R07.89 - Other chest pain Plan: Labs and CT ordered Plan The patient agreed to the use of a dental assistant medical assistant for this encounter. Scribed for SUDHA Sanders- by Michela Fraire dental assistant medical assistant, on 04/13/2024 at 15:25 EST. Orders: Orders TSH reflex Free T4 Today R07.9 - Chest pain, unspecified CT chest wo IV con Today R07.89 - Other chest pain C Reactive Protein Today R07.89 - Other chest pain Complete Blood Count Auto Diff Today R07.9 - Chest pain, unspecified Comprehensive Homer. Panel Fast Today R07.9 - Chest pain, unspecified UA CC w/rflx Micro + Cult Today R07.9 - Chest pain, unspecified Lipid Panel Today R07.9 - Chest pain, unspecified D Dimer High Sensitivity Today R07.9 - Chest pain, unspecified Troponin-I High Sensitivity Today R07.9 - Chest pain, unspecified Creatine Kinase Total Today R07.9 - Chest pain, unspecified Erythrocyte Sedimentation Rate Today R07.89 - Other chest pain Medications: New meloxicam 15 mg PO DAILY 20 days PRN 20 tabs 0RF chest pain Coding Level of Care Code New Pt Level 3 (57178) Diagnoses Chest pain R07.9 Chest discomfort R07.89 Additional Codes SALVADOR-7 Assessment Billing - SALVADOR-7 Assessment Tool: SALVADOR-7 Assessment 60744 ([id number])
== END 2024-04-13 16:24 | disposition home or self-care (01) ==
PROVIDERS: PCP Nurse Practitioner Family; Visit Provider Nurse Practitioner Family
DX: R07.9 Chest pain, unspecified (principal); R07.89 Other chest pain

== ENCOUNTER → 2024-04-13 15:05 | Outpatient (BNVA) | payer MEDICAID, SELFPAY | PROVIDERS: PCP Nurse Practitioner Family; Visit Provider Nurse Practitioner Family | DX: R07.89 Other chest pain (principal); R07.9 Chest pain, unspecified; Z79.899 Other long term (current) drug therapy | CPT/HCPCS: 96127; 99202 ==

== ENCOUNTER 2024-04-24 16:30 | Emergency (ER) | payer OTHER, SELFPAY ==
--- NOTE | ~2024-04-24 | XR_ITS ---
EXAMINATION: XR FOREARM, LEFT CLINICAL INFORMATION: Dog bite COMPARISON: None available. TECHNIQUE: AP and lateral views of the left forearm were obtained. FINDINGS: The bones and soft tissues are normal. No fracture. Imaged portions of the elbow and wrist are unremarkable. XR/XR forearm LT 2V IMPRESSION: Normal left forearm. Electronically signed by: Ivelisse Pillai MD 04/24/2024 06:59 PM EDT RP
--- NOTE | 2024-04-24 16:32 | ED.ANIMALBIT ---
HPI - Animal Bite General Chief Complaint: Animal Bite Stated Complaint: left arm dog bite Source: patient Mode of arrival: ambulatory Limitations: no limitations Related Data Home Medications ?Medication ?Instructions ?Recorded ?Confirmed meloxicam 15 mg tablet 15 mg PO DAILY PRN 04/25/24 04/25/24 Previous Rx's ?Medication ?Instructions ?Recorded doxycycline hyclate 100 mg capsule 100 mg PO BID 7 days #14 caps 04/25/24 metronidazole 500 mg tablet 500 mg PO BID #14 tabs 04/25/24 Allergies Allergy/AdvReac Type Severity Reaction Status Date / Time penicillin V Allergy Unknown Hives, Verified 04/25/24 12:34 Anaphylaxis Penicillins [PENICILLINS] Allergy Unknown UNKNOWN Verified 04/25/24 12:34 [facility] Social History Social History Housing: Apartment Patient Tobacco Use Status: Never used Tobacco e-Cigarette/Vaping Use: Never Used service: No Current occupational status: employed Cognitive needs: No Hearing needs: No Vision needs: No Physical Exam ED Vital Signs: BMI result Body Mass Index 30.6 Course Course Course Narrative: Patient is a 28 year old male presents emergency department for evaluation of a dog bite to the left distal forearm/radial aspect of the wrist. Stray dog, no owners appeared to be present, unprovoked bite latched on and was shaking it , patient was able to pull his arm away and then the dog ran off. Endorses pain to the area. Unaware of date of last tetanus vaccination Plan: XR to exclude fracture, rabies vaccination, Tdap Discharge Plan Discharge Clinical Impression: Dog bite Patient Disposition: Left W/O Completing Treatment Prescriptions: No Action meloxicam 15 mg tablet 15 mg PO DAILY PRN doxycycline hyclate 100 mg capsule 100 mg PO BID 7 Days Qty: 14 0RF metronidazole 500 mg tablet 500 mg PO BID Qty: 14 0RF Discharge Date/Time: 04/24/24 20:57
[2024-04-24 16:34] VITALS: BP 112/68; PULSE 85; RESP 18; TEMP 36.7; O2SAT 96; BMI 30.6
== END 2024-04-24 20:57 | disposition left against medical advice (07) ==
LOC: HO.ED 20:43
PROVIDERS: Emergency Provider Emergency Medicine; PCP Nurse Practitioner Family
DX: S51.852A Open bite of left forearm, initial encounter (principal); W54.0XXA Bitten by dog, initial encounter; Y93.9 Activity, unspecified; Y92.410 Unspecified street and highway as the place of occurrence of the external cause; Y99.9 Unspecified external cause status
CPT/HCPCS: 73090; 99281; 99283

== ENCOUNTER 2024-04-25 12:32 | Outpatient (AMB) | payer OTHER, SELFPAY ==
[2024-04-25 12:34] VITALS: BP 118/72; PULSE 72; TEMP 36.7; O2SAT 98; BMI 30.6
--- NOTE | 2024-04-25 12:34 | MHC.OFFWIV ---
Intake Vital Signs 04/25/24 12:34 Height 5 ft 9 in Weight 207 lb BMI 30.6 BP 118/72 Blood Pressure Location Rt brachial Position Sitting Pulse 72 Pulse Source Pulse Oximeter Temp 98.0 F Temp Source Oral Pulse Oximetry (%) 98 Oxygen Delivery Method Room Air Intake Visit Reasons: EP Dog bite Intake Note: pt is here for a dog bite on left arm yesterday at 5pm. stray dog, unsure when last tetnus was Patient Tobacco Use Status: Never used Tobacco Accompanied by: Self / Same As Patient Allergies penicillin V Allergy (Unknown, Verified 04/25/24 12:34) Hives, Anaphylaxis Penicillins [PENICILLINS] Allergy (Unknown, Verified 04/25/24 12:34) UNKNOWN Medication List - Last Reconciled 04/25/24 by THEODORA LoweP- meloxicam 15 mg PO DAILY PRN Do you need a note to return to daycare/school/sports/work: No HPI HPI Comments History of Present Illness Details 28-year-old male here today with chief complaints of a dog bite to his left forearm that occurred last night. He states that the dog appeared healthy, had a collar however he does not know the slunk skin curer and did not make contact with the slunk skin curer of the dog. He sustained skin tears to the anterior aspect of his forearm. Did rinse with hydrogen peroxide and water and applied Neosporin and dry clean dressing. He is not sure of his last tetanus vaccination. Otherwise he feels well Exam Left arm neurovascularly intact. On the anterior aspect there is a laceration in the skin about 1 cm consistent with a dog by, anterior to this is a superficial scratch in the skin with minimal break, on the posterior aspect of the forearm there are several small erythematous lind without break in the skin and a deep tissue injury. There was no signs of infection. The area was cleansed with rubbing alcohol bacitracin and a dry clean dressing were applied to the anterior aspect of the left lower arm. Plan Tdap administered. Patient is penicillin allergic therefore doxycycline and metronidazole we will be prescribed for 7 days. Advised to take with food. Wound care education provided to him today along with reasons to return to the office. Discussions regarding risk for rabies reviewed with him. Unlikely that this dog was on vaccinated given that he appeared well and had a collar. This note is constructed using voice recognition software. While every effort has been made to ensure accuracy in merchandise buyer, still errors may have been included Sometimes, these errors may affect the content or meaning of the given sentence . Total time spent caring for the patient today was 30 minutes. This includes time spent before the visit reviewing the chart, time spent during the visit, and time spent after the visit on documentation [facility] Social History Housing: Apartment Patient Tobacco Use Status: Never used Tobacco e-Cigarette/Vaping Use: Never Used service: No Current occupational status: employed Cognitive needs: No Hearing needs: No Vision needs: No Physical Exam Vital Signs: Last Vital Signs Temp 98.0 F 04/25/24 12:34 Pulse 72 04/25/24 12:34 BP 118/72 04/25/24 12:34 Pulse Ox 98 04/25/24 12:34 Oxygen Delivery Method Room Air 04/25/24 12:34 BMI result Body Mass Index 30.6 Assessment & Plan Assessment & Plan (1) Dog bite of forearm without complication: Code(s): S51.859A - Open bite of unspecified forearm, initial encounter; W54.0XXA - Bitten by dog, initial encounter Qualifiers: Encounter type: initial encounter Laterality: left Qualified Code(s): S51.852A - Open bite of left forearm, initial encounter; W54.0XXA - Bitten by dog, initial encounter Plan: . Plan . Orders: Orders TDaP Immunization Today W54.0XXA - Bitten by dog, initial encounter, Z23 - Encounter for immunization Medications: New doxycycline hyclate 100 mg PO BID 14 caps 0RF 7 days metronidazole 500 mg PO BID 14 tabs 0RF Coding Level of Care Code Est Pt Level 4 (28012) Diagnoses Dog bite of left forearm without complication, initial encounter S51.852A; W54.0XXA Encounter type: initial encounter Laterality: left
== END 2024-04-25 13:51 | disposition home or self-care (01) ==
PROVIDERS: PCP Nurse Practitioner Family; Visit Provider Nurse Practitioner Family
DX: S51.852A Open bite of left forearm, initial encounter (principal); W54.0XXA Bitten by dog, initial encounter

== ENCOUNTER → 2024-04-25 12:32 | Outpatient (BNVA) | payer OTHER, SELFPAY | PROVIDERS: PCP Nurse Practitioner Family | DX: Z23 Encounter for immunization (principal); S51.852A Open bite of left forearm, initial encounter; W54.0XXA Bitten by dog, initial encounter | CPT/HCPCS: 90471; 90715; 99212 ==

== ENCOUNTER 2024-05-04 09:06 | Outpatient (AMB) | payer OTHER, SELFPAY ==
--- NOTE | 2024-05-04 10:07 | MHC.OFFWIV ---
Intake Vital Signs 05/04/24 10:16 Height 5 ft 9 in Weight 209 lb BMI 30.9 BP 130/80 Blood Pressure Location Rt brachial Position Sitting Pulse 103 H Pulse Source Pulse Oximeter Pulse Oximetry (%) 98 Oxygen Delivery Method Room Air Intake Visit Reasons: EP stomach pain&bulging--dog [phone] Intake Note: Pt is here today c/o stomach pain and Lt forearm dog bite ?infected Patient Tobacco Use Status: Never used Tobacco Allergies penicillin V Allergy (Unknown, Verified 05/04/24 10:08) Hives, Anaphylaxis Penicillins [PENICILLINS] Allergy (Unknown, Verified 05/04/24 10:08) UNKNOWN HPI HPI Comments History of Present Illness Details Patient is a 28-year-old male complaining of 2 issues, 1st he tells me he was bitten by an unknown dog on 04/24 on his left wrist, the dog had a collar but it was an uprovoked attack. He tells me he was in the park and an unknown dog approached him and bit him and then ran off before he could speak with the online advertising analyst of the dog. He came to the walk-in clinic and was told by the provider that rabies vaccinations were not indicated as the dog was well-appearing and had a collar. He was prescribed doxycycline and metronidazole for 7 days, however he just started taking the meds yesterday, 05/03. He tells me he noticed some red dots around the wound but was not sure if the Band-Aids caused that and then he noticed yesterday when he got out of the shower, his whole chest covered with red dots and then he noticed a couple on his face but the dots are all gone now except for the ones on his wrist near the bite. He also tells me he has been having abdominal pain prior to the dog bite that seems to be getting worse. He says it is worse after a meal. He tells me he has some nausea but no vomiting and denies any diarrhea or fevers. He denies anything bloody or black in his stools. [facility] Social History Housing: Apartment Patient Tobacco Use Status: Never used Tobacco e-Cigarette/Vaping Use: Never Used service: No Current occupational status: employed Cognitive needs: No Hearing needs: No Vision needs: No Review of Systems Const All systems reviewed & are unremarkable except as noted in HPI and below Physical Exam Vital Signs: Last Vital Signs Pulse 103 H 05/04/24 10:16 BP 130/80 05/04/24 10:16 Pulse Ox 98 05/04/24 10:16 Oxygen Delivery Method Room Air 05/04/24 10:16 BMI result Body Mass Index 30.9 Const General: cooperative, healthy appearing, comfortable, no acute distress and well developed Orientation/consciousness: patient oriented x3 Limitations: no limitations HEENT Head: Yes normal to inspection Ears: hearing grossly normal bilaterally General nose exam: Normal external nose present Face and sinus: Yes normal facial exam Eyes General: appearance normal, both eyes and all related structures Neck Neck: Yes normal visual inspection and Yes full ROM Resp Effort & Inspection: normal respiratory effort and able to speak in complete sentences Auscultation: clear to auscultation bilaterally Cardio Rate: regular rate Rhythm: regular rhythm Heart sounds: normal S1 and S2 GI Inspection: Yes normal to inspection Palpation (GI): Soft to palpation and Tenderness to palpation present (GI) in the epigastrum, in the LUQ and Greenberg's sign positive Skin Other: Left forearm has a 2 cm open laceration with surrounding scant petechiae, no warmth, no drainage, no ecchymosis or surrounding erythema. Neuro General: patient oriented x3 Extrem General: Yes normal to inspection Assessment & Plan Assessment & Plan (1) Right upper quadrant abdominal pain: Code(s): R10.11 - Right upper quadrant pain Plan: Patient is slightly tachycardic, well-appearing however physical exam revealed positive Greenberg's, we will send to the emergency department to rule out cholecystitis. Sent tiger text to triage provider in the [facility] ED with expect. (2) Dog bite: Code(s): W54.0XXA - Bitten by dog, initial encounter Qualifiers: Encounter type: subsequent encounter Qualified Code(s): W54.0XXD - Bitten by dog, subsequent encounter Plan: Patient already received Tdap, he did not take his post exposure prophylaxis antibiotics right away, he just started taking them yesterday. Encouraged patient to keep taking them. The wound does not look infected, as he is going to the ER, they should evaluate him for post exposure prophylaxis for the rabies as it was an unknown dog and an unprovoked bite. Plan See above Coding Level of Care Code Est Pt Level 5 (61348) Diagnoses Right upper quadrant abdominal pain R10.11 Dog bite, subsequent encounter W54.0XXD Encounter type: subsequent encounter
[2024-05-04 10:16] VITALS: BP 130/80; PULSE 103; O2SAT 98; BMI 30.9
== END 2024-05-04 11:21 | disposition home or self-care (01) ==
PROVIDERS: PCP Nurse Practitioner Family; Visit Provider Physician Assistant
DX: R10.11 Right upper quadrant pain (principal); W54.0XXD Bitten by dog, subsequent encounter

== ENCOUNTER → 2024-05-04 09:06 | Outpatient (BNVA) | payer OTHER, SELFPAY | PROVIDERS: PCP Nurse Practitioner Family | DX: R10.11 Right upper quadrant pain (principal); W54.0XXD Bitten by dog, subsequent encounter | CPT/HCPCS: 99212 ==

== ENCOUNTER 2024-05-04 11:34 | Emergency (ER) | payer OTHER, SELFPAY ==
[2024-05-04 11:49] VITALS: BP 112/74; PULSE 80; RESP 16; TEMP 37; O2SAT 98; BMI 30.8
--- NOTE | 2024-05-04 11:51 | ED_ITS ---
HPI - General Adult General Chief complaint: Abdominal Pain Stated complaint: Dog bite Time Seen by Provider: 05/04/24 22:01 Source: patient Mode of arrival: ambulatory Limitations: no limitations History of Present Illness ED Provider: shraonda WHITESIDE narrative: Patient complaining of upper abdominal pain for last few months with nausea ulcerated dog bite on 04/24 complaining of nausea taking Flagyl and doxycycline pain is mostly in epigastric area no history of gallstones Related Data Home Medications ?Medication ?Instructions ?Recorded ?Confirmed meloxicam 15 mg tablet 15 mg PO DAILY PRN 04/25/24 04/25/24 Previous Rx's ?Medication ?Instructions ?Recorded doxycycline hyclate 100 mg capsule 100 mg PO BID 7 days #14 caps 04/25/24 metronidazole 500 mg tablet 500 mg PO BID #14 tabs 04/25/24 omeprazole 40 mg capsule,delayed 40 mg PO DAILY #20 caps 05/04/24 release ondansetron 4 mg disintegrating 4 mg PO Q6-8H PRN nausea and 05/04/24 tablet vomiting #7 tabs Allergies Allergy/AdvReac Type Severity Reaction Status Date / Time penicillin V Allergy Unknown Hives, Verified 05/04/24 11:54 Anaphylaxis Penicillins [PENICILLINS] Allergy Unknown UNKNOWN Verified 05/04/24 11:54 Review of Systems 2 Review of Systems: Yes all other systems are reviewed and are negative PMFSH Social History Social History Housing: Apartment Patient Tobacco Use Status: Never used Tobacco e-Cigarette/Vaping Use: Never Used service: No Current occupational status: employed Cognitive needs: No Hearing needs: No Vision needs: No Physical Exam ED Vital Signs: Vital Signs - 24 hr 05/04/24 11:49 05/04/24 19:12 05/04/24 20:00 Temperature 98.6 F 98.4 F 98.3 F Pulse Rate 80 95 75 Respiratory Rate 16 20 20 Blood Pressure 112/74 145/96 H 120/61 Pulse Oximetry 98 100 100 Oxygen Delivery Method Room Air Room Air Room Air BMI result Body Mass Index 30.8 Appearance: Alert. Oriented X3. No acute distress. Eyes: No pallor or icterus ENT: Pharynx normal. Oral Mucosa moist Neck: Normal inspection. Neck supple. CVS: Normal heart rate and rhythm. Pulses normal. Respiratory: No respiratory distress. Equal air entry bilateral, Abdomen: Soft and tenderness in epigastric area, Bowel sounds are present, no mass palpable, no CVA tenderness Skin: Skin warm and dry. Normal skin color. Normal skin turgor. Extremities: No lower extremity edema. No calf tenderness left wrist slightly infected dog bite Neuro: Oriented X 3. Extrem Elbow/forearm/wrist images: 2 1. Dog bite with slight cellulitis around, no signs of deep infection Course Course Course Narrative: RME performed by Lucia Powell PA-C. Patient is a 28 year old assigned male at presenting to the emergency department with a left forearm dog bite right upper quadrant abdominal pain. Patient states that he was bit 10 days ago by a dog that he does not know. Patient states the is worried because the arm is getting different . Patient states that he has also been having right upper quadrant abdominal pain for months that has gotten worse recently, most notably while he was googling things about the bite. Detailed physical exam and review of systems are deferred to the assistant teacher primary. Labs ordered. Patient placed back in the waiting room pending room availability and results. Medications Administered Discontinued Medications Generic Name Dose Route Start Last Admin Trade Name Freq PRN Reason Stop Dose Admin Omeprazole 40 mg 05/04/24 22:23 05/04/24 22:34 Omeprazole 40 Mg Capsule.Dr PO 05/04/24 22:24 40 mg ONCE ONE Administration Ondansetron HCl 4 mg 05/04/24 22:21 05/04/24 22:33 Ondansetron Odt 4 Mg Tab.Rapdis TRANSLINGU 05/04/24 22:22 4 mg ONCE ONE Administration Medical Decision Making Medical Decision Making [facility] Narrative: Patient with gastritis symptoms labs are stable liver functions negative discharge patient home on Zofran and Prilosec likely gastritis Differential Diagnosis Differential Diagnoses: The differential diagnosis associated with the presentation includes Lab Data [facility] Lab Attestation statement: I reviewed the patient's lab results. 05/04/24 12:19 05/04/24 12:19 Labs: Lab Results 05/04/24 Range/Units 12:19 WBC 7.1 (4.8-10.8) X10*3/uL RBC 5.14 (4.60-5.80) X10*6/uL Hgb 15.3 (14.0-18.0) g/dl Hct 45.7 (42.0-52.0) % MCV 88.9 (80.0-98.0) fL MCH 29.8 (27.0-33.0) pg MCHC 33.5 (31.0-36.0) g/dl RDW 11.6 (11.0-16.0) % Plt Count 191 (160-400) X10*3/uL MPV 10.4 (9.4-12.4) fL Immature Gran % (Auto) 0.1 (0.0-0.4) % Neut % (Auto) 76.0 H (45-73) % Lymph % (Auto) 18.4 L (20-40) % Dickson % (Auto) 4.5 (2-11) % Eos % (Auto) 0.6 (0-4) % Baso % (Auto) 0.4 (0-2) % Lymph # (Auto) 1.3 (1.2-4.9) X10*3/uL Dickson # (Auto) 0.3 (0.1-1.2) X10*3/uL Eos # (Auto) 0.0 (0.0-0.4) X10*3/uL Baso # (Auto) 0.0 (0.0-0.2) X10*3/uL Abs Immat Gran (auto) 0.01 (0.00-0.03) X10*3/uL Absolute Neuts (auto) 5.4 (2.0-8.3) x10*3/uL Absolute Nucleated RBC 0.000 (0.0-0.012) X10*3/uL Nucleated RBC % (auto) 0.0 (0.0-0.2) /100WBC ESR 5 (0-15) MM/HR Sodium 142 (135-145) mmol/L Potassium 4.3 (3.3-5.1) mmol/L Chloride 107 (96-108) mmol/L Carbon Dioxide 29 (22-29) mmol/L Anion Gap 10 L (12-20) BUN 14 (9-16) mg/dL Creatinine 0.94 (0.5-1.4) mg/dL Estim Creat Clear Calc 130.4 Estimated GFR > 60 Random Glucose 82 (60-115) mg/dL Calcium 10.2 (8.4-10.2) mg/dL Magnesium 2.0 (1.6-2.6) mg/dL Total Bilirubin 1.0 (0.0-1.0) mg/dL AST 20 (5-37) U/L ALT 19 (0-40) U/L Alkaline Phosphatase 71 (39-117) U/L C-Reactive Protein 0.28 (< or = 0.50) mg/dL Total Protein 7.9 (6.5-8.0) g/dL Albumin 4.7 (3.5-5.0) g/dL Urine Color Yellow Urine Appearance Clear Urine pH 7.0 (5.0-9.0) Ur Specific [place] 1.020 (1.005-1.025) Urine Protein Negative (Neg-Trace) mg/dL Urine Glucose (UA) Negative (Negative) mg/dL Urine Ketones Negative (Negative) mg/dL Urine Blood Negative (Negative) Urine Nitrite Negative (Negative) Ur Leukocyte Esterase Negative (Negative) Influenza Type A (PCR) NEGATIVE (Negative) Influenza Type B (PCR) NEGATIVE (Negative) RSV RNA Qual (PCR) NEGATIVE (Negative) SARS-CoV-2 RNA (RT-PCR) NEGATIVE (Negative) Discharge Plan Discharge Clinical Impression: Gastritis Dog bite Qualifiers: Encounter type: subsequent encounter Qualified Code(s): W54.0XXD - Bitten by dog, subsequent encounter Patient Disposition: Home, Self-Care Instructions: Gastritis (ED), Animal Bite (ED) Additional Instructions: Have yogurt/probiotic with your antibiotics Medicine for nausea as prescribed Take Prilosec daily Prescriptions: New ondansetron 4 mg tablet,disintegrating 4 mg PO Q6-8H PRN (Reason: nausea and vomiting) Qty: 7 0RF omeprazole 40 mg capsule,delayed release(DR/EC) 40 mg PO DAILY Qty: 20 0RF No Action meloxicam 15 mg tablet 15 mg PO DAILY PRN doxycycline hyclate 100 mg capsule 100 mg PO BID 7 Days Qty: 14 0RF metronidazole 500 mg tablet 500 mg PO BID Qty: 14 0RF Interventions: ED Discharge Assessment Last Done: 05/04/24 22:37 Discharge Date/Time: 05/04/24 22:37 Print Language: Syriac
[2024-05-04 12:25] LABS: MANUAL DIFF FLAG NO
[2024-05-04 12:31] LABS: Basophils Percent Auto 0.4 % (0-2); Eosinophils Percent Auto 0.6 % (0-4); Hematocrit 45.7 % (42.0-52.0); Hemoglobin 15.3 g/dl (14.0-18.0); Imm Gran Abs Auto 0.01 X10*3/uL (0.00-0.03); Imm Gran Pct Auto 0.1 % (0.0-0.4); Lymphocytes Absolute Auto 1.3 X10*3/uL (1.2-4.9); Lymphocytes Percent Auto 18.4 % (20-40); Mean Corpuscular HGB Conc 33.5 g/dl (31.0-36.0); Mean Corpuscular Hemoglobin 29.8 pg (27.0-33.0); Mean Corpuscular Volume 88.9 fL (80.0-98.0); Mean Platelet Volume 10.4 fL (9.4-12.4); Monocytes Absolute Auto 0.3 X10*3/uL (0.1-1.2); Monocytes Percent Auto 4.5 % (2-11); Neutrophils Absolute Auto 5.4 x10*3/uL (2.0-8.3); Platelet Count 191 X10*3/uL (160-400); Red Blood Count 5.14 X10*6/uL (4.60-5.80); Red Cell Distribution Width 11.6 % (11.0-16.0); White Blood Count 7.1 X10*3/uL (4.8-10.8)
[2024-05-04 12:33] LABS: Appearance Urine Clear; Color Urine Yellow; Glucose Urine UA Negative (Negative); Leukocyte Esterase Urine Negative (Negative); Nitrite Urine Negative (Negative); Urine Blood Negative (Negative); Urine Ketones Negative (Negative); Urine Protein Negative (Neg-Trace)
[2024-05-04 12:42] LABS: Alanine Aminotransferase 19 U/L (0-40); Albumin Level 4.7 g/dL (3.5-5.0); Alkaline Phosphatase 71 U/L (39-117); Anion Gap 10 (12-20); Aspartate Amino Transferase 20 U/L (5-37); Blood Urea Nitrogen 14 mg/dL (9-16); C Reactive Protein 0.28 mg/dL (< or = 0.50); Calcium 10.2 mg/dL (8.4-10.2); Carbon Dioxide 29 mmol/L (22-29); Chloride 107 mmol/L (96-108); Creatinine Clr Calc Pharmacy 130.4; Estimated Glomerular Filt Rate > 60; Glucose Random 82 mg/dL (60-115); Potassium 4.3 mmol/L (3.3-5.1); Sodium 142 mmol/L (135-145); Total Protein 7.9 g/dL (6.5-8.0)
[2024-05-04 13:08] LABS: Influenza A PCR NEGATIVE (Negative); Influenza B PCR NEGATIVE (Negative); Resp Syncy Virus RNA Qual PCR NEGATIVE (Negative); SARS COV2 PCR INHOUSE NEGATIVE (Negative)
[2024-05-04 13:09] LABS: Erythrocyte Sedimentation Rate 5 MM/HR (0-15)
[2024-05-04 19:12] VITALS: BP 145/96; PULSE 95; RESP 20; TEMP 36.9; O2SAT 100
[2024-05-04 20:00] VITALS: BP 120/61; PULSE 75; RESP 20; TEMP 36.8; O2SAT 100
[2024-05-04] MEDS: Ondansetron ODT 4 MG TAB.RAPDIS TRANSLINGU (22:33)
[2024-05-04] MEDS: Omeprazole 40 MG CAPSULE.DR PO (22:34)
[2024-05-04 22:37] VITALS: BP 120/61; PULSE 75; RESP 20; TEMP 36.8; O2SAT 100
== END 2024-05-04 22:37 | disposition home or self-care (01) ==
PROVIDERS: Physician Assistant Medical; Emergency Provider Internal Medicine; PCP Nurse Practitioner Family
DX: K29.70 Gastritis, unspecified, without bleeding (principal); W54.0XXD Bitten by dog, subsequent encounter; R10.10 Upper abdominal pain, unspecified; R11.0 Nausea; Z79.899 Other long term (current) drug therapy; Z03.818 Encounter for observation for suspected exposure to other biological agents ruled out
CPT/HCPCS: 0241U; 80053; 81003; 83735; 85025; 85652; 86140; 99283

== ENCOUNTER 2024-05-28 13:05 | Outpatient (AMB) | payer OTHER, SELFPAY ==
[2024-05-28 13:07] VITALS: BP 118/76; PULSE 75; TEMP 36.8; O2SAT 98
--- NOTE | 2024-05-28 13:07 | MHC.OFFWIV ---
Intake Vital Signs 05/28/24 13:07 Height 5 ft 9 in BP 118/76 Blood Pressure Location Rt brachial Position Sitting Pulse 75 Pulse Source Pulse Oximeter Temp 98.2 F Temp Source Oral Pulse Oximetry (%) 98 Intake Visit Reasons: EP-chest pain,sob,upper and lwr back pain Intake Note: pt is here for chest pain ongoing for 5 months and trouble breathing and low energy Patient Tobacco Use Status: Never used Tobacco Allergies penicillin V Allergy (Unknown, Verified 05/28/24 13:08) Hives, Anaphylaxis Penicillins [PENICILLINS] Allergy (Unknown, Verified 05/28/24 13:08) UNKNOWN Do you need a note to return to daycare/school/sports/work: No HPI EP-chest pain,sob,upper and lwr back pain HPI Details This note is constructed using voice recognition software. While every effort has been made to ensure accuracy, employment counselor errors may have been included. The patient is a 28 year old male who presents to the clinic today with chest wall and upper and lower back pain for the past 5 months. He reports that he has been seen multiple times for this and prescribed anti-inflammatories which either do not help were only helped for a limited period of time. 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 The pain has been sharp in nature, and led to what he feels are deformities in his chest wall. He reports that the pain was intense last night and led him to feel short of breath when he took a deep breath. He denies chest pain, palpitations, lightheadedness, dizziness. He denies numbness and tingling in his hands and feet, loss of control of bladder or bowel. He denies trauma to his chest wall or back. He does report that when he was weightlifting he was bulging and shreading, with moderate amounts of weight gain and loss for result in weightlifting. [facility] Social History Housing: Apartment Patient Tobacco Use Status: Never used Tobacco e-Cigarette/Vaping Use: Never Used service: No Current occupational status: employed Cognitive needs: No Hearing needs: No Vision needs: No Review of Systems Const All systems reviewed & are unremarkable except as noted in HPI and below Physical Exam Vital Signs: Last Vital Signs Temp 98.2 F 05/28/24 13:07 Pulse 75 05/28/24 13:07 BP 118/76 05/28/24 13:07 Pulse Ox 98 05/28/24 13:07 Const General: cooperative, healthy appearing, comfortable, no acute distress and well developed Orientation/consciousness: patient oriented x3 Limitations: no limitations Neck Neck: Yes normal visual inspection and Yes full ROM Chest Other: Increased muscle bulging over pectoral muscles with tenderness on palpation. Resp Effort & Inspection: normal respiratory effort and able to speak in complete sentences Auscultation: clear to auscultation bilaterally Cardio Rate: regular rate Rhythm: regular rhythm Heart sounds: normal S1 and S2 Back/Spine/Pelvis Other: Increased muscle bulging and bilateral trapezius and lumbar region with reduced lateral rotation of lumbar spine and flexion due to pain. Shoulders full range of motion. Strength 5/5. Distal neurovascular exam intact. Skin General skin exam: no rashes or lesions noted Neuro General: patient oriented x3 Extrem General: Yes normal to inspection Assessment & Plan Assessment & Plan (1) Myalgia: Code(s): M79.10 - Myalgia, unspecified site Plan: Etiology unclear, with out response to NSAIDs. We will try a prednisone for anti-inflammatory effects with muscle relaxers. Physical therapy referral placed due to chronicity of symptoms. Advised patient to follow up with PCP with worsening symptoms or failure to resolve. Plan See above for full details and plan. Orders: Orders PT Evaluation and Treatment Today G89.29 - Other chronic pain, M54.9 - Dorsalgia, unspecified Medications: New cyclobenzaprine 10 mg PO TID PRN 10 tabs 0RF muscle spasm prednisone 40 mg (2 x 20 mg) PO DAILY 5 days 10 tabs 0RF Coding Level of Care Code Est Pt Level 4 (38956) Diagnoses Myalgia M79.10 Time Spent (min) 25
== END 2024-05-28 14:08 | disposition home or self-care (01) ==
PROVIDERS: PCP Nurse Practitioner Family; Visit Provider Registered Nurse
DX: M79.10 Myalgia, unspecified site (principal)

== ENCOUNTER → 2024-05-28 13:05 | Outpatient (BNVA) | payer OTHER, SELFPAY | PROVIDERS: PCP Nurse Practitioner Family; Visit Provider Registered Nurse | DX: M79.18 Myalgia, other site (principal) | CPT/HCPCS: 99212 ==

== ENCOUNTER 2024-06-02 07:29 | Outpatient (REF) | payer OTHER, SELFPAY | END 2024-06-02 07:30 | disposition home or self-care (01) | LOC: HO.CT 07:29 | PROVIDERS: PCP Nurse Practitioner Family; Visit Provider Nurse Practitioner Family | DX: R07.89 Other chest pain (principal) | CPT/HCPCS: 71250 ==

== ENCOUNTER → 2024-06-02 07:33 | Outpatient (BNV) | payer OTHER, SELFPAY | PROVIDERS: PCP Nurse Practitioner Family; Visit Provider Radiology Diagnostic Radiology | DX: R07.9 Chest pain, unspecified (principal) | CPT/HCPCS: 71250 ==

== ENCOUNTER 2024-06-22 14:54 | Outpatient (AMB) | payer OTHER, SELFPAY ==
[2024-06-22 15:24] VITALS: BP 100/66; PULSE 115; TEMP 37; O2SAT 96; BMI 29.6
--- NOTE | 2024-06-22 15:24 | MHC.OFFWIV ---
Intake Vital Signs 06/22/24 15:24 Height 5 ft 9 in Weight 200 lb 4 oz BMI 29.6 BP 100/66 Blood Pressure Location Lt brachial Position Sitting Pulse 115 H Pulse Source Pulse Oximeter Temp 98.6 F Temp Source Oral Pulse Oximetry (%) 96 Oxygen Delivery Method Room Air Intake Visit Reasons: EP-entire spine pain, stomach pain, gas, face rash Intake Note: Pt is here today c/o mid spine pain, stomach pain,gas face rash plus h/a Patient Tobacco Use Status: Never used Tobacco Allergies penicillin V Allergy (Unknown, Verified 06/22/24 15:30) Hives, Anaphylaxis Penicillins [PENICILLINS] Allergy (Unknown, Verified 06/22/24 15:30) UNKNOWN HPI EP-entire spine pain, stomach pain, gas, face rash HPI Details This note is constructed using voice recognition software. While every effort has been made to ensure accuracy, animal cruelty investigation supervisor errors may have been included. The patient is a 28 year old male who presents to the clinic today with multiple complaints. The patient reports that he has had back pain for the past several months, it started in the mid back, then the lower back, then the upper back. It seems to be exacerbated by lifting his child, or over use. He has not been taking any medication as he has had some abdominal complaints. He reports for the past year he has had some constipation issues with some acid reflux, he has not taken anything for that other than attempting to use prune juice, which seems to help. He avoids NSAIDs due to his GI symptoms. He also reports that he has a dry rash that started on his wrists and has occurred for locate it is throughout his body. Starts as small bumps, he has not applied anything to them. [facility] Social History Housing: Apartment Patient Tobacco Use Status: Never used Tobacco e-Cigarette/Vaping Use: Never Used service: No Current occupational status: employed Cognitive needs: No Hearing needs: No Vision needs: No Review of Systems Const All systems reviewed & are unremarkable except as noted in HPI and below Physical Exam Vital Signs: Last Vital Signs Temp 98.6 F 06/22/24 15:24 Pulse 115 H 06/22/24 15:24 BP 100/66 06/22/24 15:24 Pulse Ox 96 06/22/24 15:24 Oxygen Delivery Method Room Air 06/22/24 15:24 BMI result Body Mass Index 29.6 Const General: cooperative, healthy appearing, comfortable, no acute distress and well developed Orientation/consciousness: patient oriented x3 Limitations: no limitations HEENT Head: Yes normal to inspection Neck Neck: Yes normal visual inspection Resp Effort & Inspection: normal respiratory effort and able to speak in complete sentences Auscultation: clear to auscultation bilaterally Cardio Jugular venous distension: no JVD Rate: regular rate Rhythm: regular rhythm Heart sounds: S1 normal heart sound present, S2 normal heart sound present and normal S1 and S2 GI Inspection: Yes normal to inspection Palpation (GI): Soft to palpation and Tenderness to palpation present (GI) in the epigastrum Percussion: Yes normal to percussion Auscultation: Hypoactive bowel sounds present Back/Spine/Pelvis Other: Slightly reduced lateral rotation and flexion. Tenderness in paraspinal muscles and thoracic and cervical region. Skin Other: Eczematous rash to right wrist, bilateral face. No discharge, warmth, or signs of secondary bacterial infection. Neuro General: patient oriented x3 Psych Appearance: grossly normal Attitude: cooperative Assessment & Plan Assessment & Plan (1) Acid reflux: Code(s): K21.9 - Gastro-esophageal reflux disease without esophagitis Qualifiers: Esophagitis presence: without esophagitis Qualified Code(s): K21.9 - Gastro-esophageal reflux disease without esophagitis Plan: Advised trial [id number] Tums for symptomatic management. Patient to avoid NSAIDs. Advised avoidance acidic foods, carbonated beverages, large meals, or anything to eat or drink within 2-3 hours of lying down. Consider trial famotidine for at least 2 weeks, for symptomatic management and then p.r.n. after that. Advised patient to follow up worsening or failure to resolve. (2) Constipation: Code(s): K59.00 - Constipation, unspecified Qualifiers: Constipation type: unspecified constipation type Qualified Code(s): K59.00 - Constipation, unspecified Plan: Constipation likely worsening his acid reflux. Advised fiber through diet or supplementation, increased hydration, and walks. Advised follow up with PCP. (3) Cervicalgia: Code(s): M54.2 - Cervicalgia Plan: Advised acetaminophen, as patient is unable to tolerate NSAIDs at this time. Advised ice/heat, stretching. Advised follow up with PCP. (4) Eczema: Code(s): L30.9 - Dermatitis, unspecified Qualifiers: Eczema type: unspecified Qualified Code(s): L30.9 - Dermatitis, unspecified Plan: Advised to increase hydration, emollients. Advised avoidance of excessive heat to skin. Advised follow up with PCP as needed. Plan See above for full details and plan. Medications: New ondansetron 4 mg PO Q8H PRN 9 tabs 0RF nausea and vomiting 3 days Coding Level of Care Code Est Pt Level 3 (55318) Diagnoses Gastroesophageal reflux disease without esophagitis K21.9 Esophagitis presence: without esophagitis Constipation, unspecified constipation type K59.00 Constipation type: unspecified constipation type Cervicalgia M54.2 Eczema, unspecified type L30.9 Eczema type: unspecified
== END 2024-06-22 16:00 | disposition home or self-care (01) ==
PROVIDERS: PCP Nurse Practitioner Family; Visit Provider Registered Nurse
DX: K21.9 Gastro-esophageal reflux disease without esophagitis (principal); K59.00 Constipation, unspecified; M54.2 Cervicalgia; L30.9 Dermatitis, unspecified

== ENCOUNTER → 2024-06-22 14:54 | Outpatient (BNVA) | payer OTHER, SELFPAY | PROVIDERS: PCP Nurse Practitioner Family; Visit Provider Registered Nurse | DX: K21.9 Gastro-esophageal reflux disease without esophagitis (principal); K59.00 Constipation, unspecified; M54.2 Cervicalgia; L30.9 Dermatitis, unspecified | CPT/HCPCS: 99212 ==

== ENCOUNTER 2024-06-30 14:15 | Outpatient (AMB) | payer OTHER, SELFPAY ==
[2024-06-30 14:18] VITALS: BP 120/62; PULSE 68; O2SAT 98; BMI 29.7
--- NOTE | 2024-06-30 14:18 | MHC.PC.OV ---
Vital Signs 06/30/24 14:18 Height 5 ft 9 in Weight 201 lb BMI 29.7 BP 120/62 Blood Pressure Location Lt brachial Position Sitting Pulse 68 Pulse Source Pulse Oximeter Pulse Oximetry (%) 98 Intake Visit Reasons: 3m follow up Intake Note: pt is here for 3 mon f/up Allergies penicillin V Allergy (Unknown, Verified 06/30/24 14:18) Hives, Anaphylaxis Penicillins [PENICILLINS] Allergy (Unknown, Verified 06/30/24 14:18) UNKNOWN Tobacco use date assessed: 04/13/24 Dental Screening Dental Screen Date: 04/13/24 HPI 3m follow up HPI Details Chief Complaint The patient presents with chest wall pain. History of Present Illness The patient is a 28-year-old male presenting with chest wall pain, spine inflammation, and gastrointestinal concerns. The chest discomfort began at the end of March, with the patient visiting the ER for chest wall pain; the EKG was normal, and troponin levels were negative. Chest X-rays were also negative. The pain was noted to be reproducible with palpation, suggesting costochondritis, an inflammatory response along the sternum. The patient experienced slight protrusion and tenderness at the lower sternum. A chest CAT scan was ordered but initially delayed due to insurance, although it was eventually performed on May 02, though results have not yet been returned. The patient also describes inflammation affecting the entire spine, from lumbar to cervical regions, leading to difficulty in neck and upper body movement for about a month, though symptoms are slowly subsiding? No numbness or tingling down the lower extremities. Social History - Reports difficulty returning to work due to symptoms. Health Maintenance Review of Systems - Musculoskeletal: Reports chest wall pain, spine inflammation. - Gastrointestinal: Reports constipation, intermittent. -denies any SOB, N/V, fevers, chills. Physical Exam General: Cooperative, healthy appearing, comfortable, no acute distress and well developed Orientation: Patient oriented x3 Limitations: No limitations Head: Normal to inspection Ears: Hearing grossly normal bilaterally Nose: Normal external nose present Face and sinus: Normal facial exam Eyes: Appearance normal, both eyes and all related structures Neck: Normal visual inspection and Yes full ROM Respiratory: Normal respiratory effort and able to speak in complete sentences. Clear to auscultation bilaterally Cardiovascular: Regular rate and rhythm. Normal S1 and S2 GI: Normal to inspection. Soft to palpation and nontender Skin: No rashes or lesions noted. slight protrusion of xiphoid process and just inferior to this. no erythema, tenderness noted with palpation. Neuro: Patient oriented x3 Extremities: Normal to inspection Results - Tests and Diagnostics: Awaiting results from chest CAT scan performed on May 02. Plan - Monitor the chest wall pain and sternum tenderness, potentially due to costochondritis, and reassess upon receiving the CAT scan results. - Encourage stretching exercises for spine inflammation to improve range of motion and comfort. - Address constipation with dietary changes and consider further gastrointestinal evaluation if symptoms persist. Patient was informed and verbally consented to the use of an ambient scribe for clinic note documentation during this visit. Discussion Notes During the visit, we discussed the likelihood that the chest wall pain is associated with costochondritis, given the reproducibility of pain with palpation. We are awaiting results from the chest CAT scan. I advised against surgical intervention for the sternum protrusion, explaining that it poses no cancer risk. Regarding the spine inflammation, it appears to be resolving gradually; therefore, I recommended implementing a stretching routine to facilitate further improvement. For gastrointestinal concerns, dietary adjustments are suggested to manage constipation. Patient Instructions - Follow up on the chest CAT scan results with the office. - Begin a daily stretching routine to alleviate spine inflammation. - Monitor and manage constipation symptoms through dietary changes. - Return for re-evaluation if there are no improvements or if symptoms worsen. [facility] Surgical History No pertinent past surgical history Social History Housing: Apartment Patient Tobacco Use Status: Never used Tobacco e-Cigarette/Vaping Use: Never Used service: No Current occupational status: employed Cognitive needs: No Hearing needs: No Vision needs: No Questionnaire PHQ-9 Over the last 2 weeks, how often have you been bothered by any of the following problems? 89322 - PHQ-9 Billing: Patient declined-do not bill Source: Developed by Drs. David Madison, Jasmine Grant, Karan Vaughn and colleagues, with an educational stephanie from [employer]. Thrive Questionnaire Date Thrive assessed: 06/30/24 I am a: Patient What is your living situation today?: I choose not to answer this question Within the past 12 months, did the food you bought not last and you didn't have the money to get more?: Never true Within the past 12 months, did you worry whether your food would run out before you got money to buy more?: Never true Do you have trouble paying for medicines?: I choose not to answer this question Do you have trouble getting transportation to medical appointments?: I choose not to answer this question Do you have trouble paying your heating and electricity bill?: I choose not to answer this question Do you have trouble taking care of your child, family member or friend?: I choose not to answer this question Do you have trouble with day-to-day activities such as bathing, preparing meals, shopping, managing finances, etc.?: Yes Are you currently unemployed and looking for a job?: Yes Are you interested in more education?: I choose not to answer this question Please select the resources that you would like help with: None Currently or been in a relationship where the following occur: I choose not to answer THRIVE Score: 0 AUDIT C Alcohol Use Questionnaire (AUDIT-C) 1. How often do you have a drink containing alcohol?: Monthly or less 2. How many drinks containing alcohol do you have on a typical day when you are drinking?: 1 or 2 3. How often do you have six or more drinks on one occasion?: Never Total Score: 1 Score Reviewed/Action Taken: Yes SALVADOR-7 AMB Questionnaire SALVADOR-7 Date SALVADOR - 7 assessed: 04/13/24 Source: Developed by Drs. David Madison, Jasmine Grant, Karan Vaughn and colleagues, with an educational stephanie from [employer]. Physical exam (Primary Care) Vital Signs: Last Vital Signs Pulse 68 06/30/24 14:18 BP 120/62 06/30/24 14:18 Pulse Ox 98 06/30/24 14:18 BMI result Body Mass Index 29.7 Tobacco/Smoking Status: Tobacco use Status Tobacco use date assessed 04/13/24 06/30/24 14:19 Patient Tobacco Use Status Never used Tobacco 06/30/24 14:19 e-Cigarette/Vaping Use Never Used 06/30/24 14:19 Thrive Assessment: Date of Thrive Assessment Date Thrive assessed 06/30/24 06/30/24 14:19 Currently or been in a relationship where the following occur: I choose not to answer Coding Level of Care Code Est Pt Level 3 (74666) Diagnoses Xiphoid pain R07.89 Chest discomfort R07.89 Assessment & Plan Assessment & Plan (1) Xiphoid pain: Code(s): R07.89 - Other chest pain Category: Medical (2) Chest discomfort: Code(s): R07.89 - Other chest pain Category: Medical Plan .
== END 2024-06-30 14:58 | disposition home or self-care (01) ==
PROVIDERS: PCP Nurse Practitioner Family; Visit Provider Nurse Practitioner Family
DX: R07.89 Other chest pain (principal)

== ENCOUNTER → 2024-06-30 14:15 | Outpatient (BNVA) | payer OTHER, SELFPAY | PROVIDERS: PCP Nurse Practitioner Family; Visit Provider Nurse Practitioner Family | DX: R07.89 Other chest pain (principal) | CPT/HCPCS: 99212 ==

== ENCOUNTER 2024-08-21 14:17 | Outpatient (AMB) | payer OTHER, SELFPAY ==
--- NOTE | 2024-08-21 14:33 | AM.OFFWIN_ITS ---
Intake Vital Signs 08/21/24 14:35 Weight 203 lb BP 118/76 Blood Pressure Location Rt brachial Position Sitting Pulse 65 Pulse Source Pulse Oximeter Pulse Oximetry (%) 98 Oxygen Delivery Method Room Air Intake Visit Reasons: EP migraines, head swollen on RT side Intake Note: Patient here for migraine that has been present for about 3-4 weeks now and noticed a lump on the right side of his head that he noticed around the same time. Patient Tobacco Use Status: Never used Tobacco Allergies penicillin V Allergy (Unknown, Verified 08/21/24 14:36) Hives, Anaphylaxis Penicillins [PENICILLINS] Allergy (Unknown, Verified 08/21/24 14:36) UNKNOWN Do you need a note to return to daycare/school/sports/work: No HPI HPI Comments History of Present Illness Details History of Present Illness - The patient is a 29-year-old male pres enting with concerns of chronic migraines and a palpable bump on the right side of his head. - Reports of a subtle bump present on th e right side of the cranium without associated trauma. States TTP at times. - The migraines have been ongoing for th ree to four weeks, predominantly marked by periods of light sensitivity and blurred vision, although currently not present. Migraines go away on their own, with no OTC meds. Pt states he is well hydrated. Denies vision changes. No photo/phono-phobia. No noticable food triggers or excessive caffeine intake. Does use alcohol and is questioning if part of withdrawal to that or opioids. Previous substance usage led to withdrawal symptoms manifesting as headaches and insomnia during cessation efforts. Admits to using blue pills which he thinks is fentanyl as well as alcohol. Asking for referral to [facility] for detox. Physical Exam General: Cooperative, healthy appearing, comfortable, no acute distress and well developed Orientation: Patient oriented x3 Limitations: No limitations Head: Normal to inspection, with a subtle 1cm hard, non mobile lump on the right frontal side of the head, slightly ttp Ears: Hearing grossly normal bilaterally Nose: Normal external nose present Face and sinus: Normal facial exam Eyes: Appearance normal, both eyes and all related structures, PERRL Neck: Normal visual inspection and Yes full ROM Respiratory: Normal respiratory effort and able to speak in complete sentences. Skin: No rashes or lesions noted Neuro: Patient oriented x3, nofocal neuro deficits Extremities: Normal to inspection PFSH Surgical History No pertinent past surgical history Social History Housing: Apartment Patient Tobacco Use Status: Never used Tobacco e-Cigarette/Vaping Use: Never Used service: No Current occupational status: employed Cognitive needs: No Hearing needs: No Vision needs: No Review of Systems Const All systems reviewed & are unremarkable except as noted in HPI and below Physical Exam Vital Signs: Last Vital Signs Pulse 65 08/21/24 14:35 BP 118/76 08/21/24 14:35 Pulse Ox 98 08/21/24 14:35 Oxygen Delivery Method Room Air 08/21/24 14:35 Assessment & Plan Assessment & Plan (1) Persistent headaches: Code(s): R51.9 - Headache, unspecified Plan: The patient's chronic migraine condition requires further investigation; coupled with the subtle bump on the cranium, recommending a head CT would elucidate any structural issues. Will msg PCP with this information for follow up. Patient was informed and verbally consented to the use of an ambient scribe for clinic note documentation during this visit. (2) Localized swelling, mass and lump, head: Code(s): R22.0 - Localized swelling, mass and lump, head Plan: Will message PCP for follow up imaging on subltle right sided frontal 1cm palpable lump on skull. Gave red flag warning signs on when to seek emergency medical care. Today, he has no focal neurological deficits or other red flag signs to warrant emergent ED evaluation. (3) Fentanyl use disorder, moderate: Code(s): F11.20 - Opioid dependence, uncomplicated Plan: For substance withdrawal and potential misuse of non-prescribed medication, Narcan has been supplied for safety against opioid overdose, coupled with advice on avoiding unprescribed pills. Will relay message to PCP for pt's request for referral to [facility] for treatment. Medications: New naloxone 4 mg/actuation (Narcan) spray 1 dose into ONE nostril; alternate nostrils w each dose until help arrives 4 mg intranasal Q2M PRN 2 ea 1RF opioid overdose Coding Level of Care Code Est Pt Level 5 (76458) Diagnoses Persistent headaches R51.9 Localized swelling, mass and lump, head R22.0 Fentanyl use disorder, moderate F11.20
[2024-08-21 14:35] VITALS: BP 118/76; PULSE 65; O2SAT 98
--- OUTSIDE RECORDS SUMMARY | 2024-08-21 14:35 | XMS_ITS | Clinical Summary ---
Author Organization [facility] Facility Address [address] [address] Care Team Providers Care Gymnasium Teacher Name Role Phone Jarod Cooper MD Primary Care Provider [phone]- [phone] Medications ASPIRIN 81 PO TAKE 1 TABLET BY MOUTH EVERY DAY 09/02/2020 Active Active Problems Problem Noted Date Diagnosed Date Chest pain 09/26/2020 Anxiety 09/26/2020 Acute nontraumatic kidney injury Resolved Problems Problem Noted Date Diagnosed Date Resolved Date Acute kidney injury due to trauma 09/26/2020 09/27/2020 Deep venous thrombosis 09/26/202009/26 Hypertension 09/26/2020 09/26/2020 Acute renal failure on dialysis 09/26/2020 09/27/2020 Rhabdomyolysis 09/27/2020 Social History Tobacco Use Types Packs/Day Years Used Date Smoking Tobacco: Never Assessed Tobacco Cessation:Counseling Given: No Sex and Gender Information Value Date Recorded Sex Assigned at Not on file Legal Sex Male 1:22 PM EST Gender Identity Not on file Sexual Orientation Not on file Last Filed Vital Signs Vital Sign Reading Time Taken Comments Blood Pressure 138/90 09/27/2020 9:28 AM EDT Pulse 119 09/27/2020 9:28 AM EDT Temperature - - Respiratory Rate - - Oxygen Saturation - - Inhaled Oxygen Concentration - - Weight 108 kg (237 lb) 09/27/2020 9:28 AM EDT Height 172.7 cm (5' 8 ) 09/27/2020 9:28 AM EDT Body Mass Index 36.04 09/27/2020 9:28 AM EDT Plan of Treatment Health Maintenance Due Date Last Done Comments Hepatitis B Vaccine (1 of 3 - 19+ 3-dose series) 2012 Influenza Vaccine (#1) 2024 Pneumococcal Vaccine: Pediat rics (0 to 5 Years) and At-Risk Patients (6 to 64 Years) Aged Out No longer eligi ble based on patient's age to complete this topic Insurance [place]ICAID [place] [facility] [place] [facility] Member Subscriber Plan / Payer (Ef fective 2020-Present) Name:Cristal Aceves Relation to Subscriber:Self Name:Cristal Aceves Payer ID:Not on file Type:Not on file Address: [place] [id number] Care Teams Gymnasium Teacher Relationship Specialty Start Date End Date Jarod Cooper MD [address] [place] [phone] PCP - General Internal Medicine 09/27/20
--- OUTSIDE RECORDS SUMMARY | 2024-08-21 14:35 | XMS_ITS | Clinical Summary ---
Author Organization [facility] ity Address [address] [place] [address] Care Team Providers Care Automation Qa Lead Name Role Phone Unavailable Primary Care Provider Unavailabl e Social History Tobacco Use Types Packs/Day Years Used Date Smoking Tobacco: Never Assessed Sex and Gender Information Value Date Recorded Sex Assigned at Not on file Gender Identity Not on file Sexual Orientation Not on file Plan of Treatment Health Maintenance Due Date Last Done Comments DTaP,Tdap,and Td Vaccines (1 - Tdap) 2012 Hepatitis B Vaccines (1 of 3 - 19+ 3-dose series) 2012 COVID-19 Vaccine (2023-2 5 season) 2024 Influenza Vaccine (#1) 2024 HIB Vaccines Aged Out No longer eligi ble based on patient's age to complete this topic HPV Vaccines Aged Out No longer eligi ble based on patient's age to complete this topic Hepatitis A Vaccines Aged Out No long er eligible based on patient's age to complete this topic IPV Vaccines Aged Out No longer eligi ble based on patient's age to complete this topic MMR Vaccines Aged Out No longer eligi ble based on patient's age to complete this topic Meningococcal ACWY Vaccine Aged Out N o longer eligible based on patient's age to complete this topic Pneumococcal Vaccine: Pediat rics (0 to 5 Years) and At-Risk Patients (6 to 64 Years) Aged Out No longer eligible b ased on patient's age to complete this topic RSV Immunization Patients Un kristopher 20 months Aged Out No longer eligible b ased on patient's age to complete this topic Varicella Vaccines Aged Out No longer eligible based on patient's age to complete this topic
--- OUTSIDE RECORDS SUMMARY | 2024-08-21 14:35 | XMS_ITS | Clinical Summary ---
Author Organization [facility] Address [address] [place] [phone] Phone Care Team Providers Care Business Process Representative Name Role Phone Unavailable Primary Care Provider Unavailabl e Immunizations Immunization Administration Dates Next Due DTP 12/13/1995, 5,1993, 994 DTaP 5 07/22/1998 Hep B, ped/adol 06/13/1994,1993,1993 Hib (PRP-T) 03/14/1995, 4,1993, 994 IPV 03/14/1995,1993,1993 MMR 09/11/1997,03/14/1995 Meningococcal Conj (Menactra) MCV4P 01/06/2008 OPV 07/22/1998 Tdap 11/26/2006 Family History Relation Name Status Comments Brother Brother: Health y Father Father: Healthy Mother Mother: Healthy Other Naren: Healthy Social History Tobacco Use Types Packs/Day Years Used Date Smoking Tobacco: Never Assessed Sex and Gender Information Value Date Recorded Sex Assigned at Not on file Legal Sex Male 4:30 PM EDT Gender Identity Not on file Sexual Orientation Not on file Last Filed Vital Signs Vital Sign Reading Time Taken Comments Blood Pressure 114/78 11/24/2009 12:00 AM EDT Pulse - - Temperature 36.9 ??C (98.5 ??F) 11/24/2009 12:00 AM E DT Respiratory Rate - - Oxygen Saturation - - Inhaled Oxygen Concentration - - Weight 82.1 kg (181 lb) 11/24/2009 12:00 AM EDT Height - - Body Mass Index - - Plan of Treatment Health Maintenance Due Date Last Done Comments Varicella Vaccines (1 of 2 - 13+ 2-dose series) 2006 DTaP,Tdap,and Td Vaccines (7 - Td or Tdap) 11/26/2016 11/26/2006, 07/22/1998, 12/13/1995, Additional history exists Influenza Vaccines (#1) 2024 COVID-19 Vaccine (2023- season) 2024 Hepatitis B Vaccines Completed 06/13/1994, 1993, 1993 HIB Vaccines Completed 03/14/1995, 01/14, 1993, Additional history exists MMR Vaccines Completed 09/11/1997, 03/14/1995 IPV Vaccines Completed 07/22/1998, 02/14, 1993, Additional history exists Meningococcal Vaccine Aged Out 01/06/2008 No baldemar gianna eligible based on patient's age to complete this topic HPV Vaccines Aged Out No longer eligi ble based on patient's age to complete this topic Hepatitis A Vaccines Aged Out No long er eligible based on patient's age to complete this topic Men B Vaccine Aged Out No longer elig ible based on patient's age to complete this topic Pneumococcal Vaccine Aged Out No long er eligible based on patient's age to complete this topic
== END 2024-08-21 15:17 | disposition home or self-care (01) ==
PROVIDERS: PCP Nurse Practitioner Family; Visit Provider Physician Assistant
DX: R51.9 Headache, unspecified (principal); R22.0 Localized swelling, mass and lump, head; F11.20 Opioid dependence, uncomplicated

== ENCOUNTER → 2024-08-21 14:17 | Outpatient (BNVA) | payer OTHER, SELFPAY | PROVIDERS: PCP Nurse Practitioner Family | DX: R51.9 Headache, unspecified (principal); R22.0 Localized swelling, mass and lump, head; F11.20 Opioid dependence, uncomplicated | CPT/HCPCS: 99212 ==

== ENCOUNTER 2024-08-29 12:45 | Outpatient (AMB) | payer OTHER, SELFPAY ==
[2024-08-29 13:04] VITALS: BP 100/70; PULSE 67; RESP 14; TEMP 37.1; O2SAT 98; BMI 30.1
--- NOTE | 2024-08-29 13:04 | MHC.OFFWIV ---
Intake Vital Signs 08/29/24 13:04 Height 5 ft 9 in Weight 204 lb BMI 30.1 BP 100/70 Blood Pressure Location Lt brachial Position Sitting Respiration 14 Pulse 67 Pulse Source Pulse Oximeter Temp 98.7 F Temp Source Oral Pulse Oximetry (%) 98 Oxygen Delivery Method Room Air Intake Visit Reasons: EP Chest pain/tenderness/swelling Intake Note: Pt here today c/o chest discomfort and neck pain with headache Patient Tobacco Use Status: Never used Tobacco Allergies penicillin V Allergy (Unknown, Verified 08/29/24 13:04) Hives, Anaphylaxis Penicillins [PENICILLINS] Allergy (Unknown, Verified 08/29/24 13:04) UNKNOWN HPI EP Chest pain/tenderness/swelling HPI Details Patient with a history of chest wall pain presents with ongoing chest wall pain and concern For heart and lung problems. Patient has had workup for cardiac and pulmonary etiology including EKG, lab work, x-rays and CT. Patient recounts history of substance abuse and currently has been withdrawing from these. He says he is going to detox tomorrow PFSH Surgical History (Reviewed 06/30/24 @ 14:54 by [facility]patrick [facility] No pertinent past surgical history Social History Housing: Apartment Patient Tobacco Use Status: Never used Tobacco e-Cigarette/Vaping Use: Never Used service: No Current occupational status: employed Cognitive needs: No Hearing needs: No Vision needs: No Review of Systems Const Denies chills, Denies fatigue, Denies fever(s), Denies headache(s) and Denies weakness ENT Denies dizziness and Denies headache(s) Card Denies dyspnea Resp Denies cough, Denies dyspnea, Denies wheezing and Denies other ( shortness of breath) Musc Details: Anterior chest wall pain Denies numbness and Denies tingling Neuro Denies dizziness, Denies headache(s), Denies numbness, Denies tingling, Denies paresthesias and Denies weakness Psych Denies anxiety and Denies depression Endo Denies fatigue Aller/Immun Denies wheezing Physical Exam Vital Signs: Last Vital Signs Temp 98.7 F 08/29/24 13:04 Pulse 67 08/29/24 13:04 Resp 14 08/29/24 13:04 BP 100/70 08/29/24 13:04 Pulse Ox 98 08/29/24 13:04 Oxygen Delivery Method Room Air 08/29/24 13:04 BMI result Body Mass Index 30.1 Const General: no acute distress and well developed Nutritional Appearance: well nourished Orientation/consciousness: patient oriented x3 HEENT Head: Yes normocephalic and Yes atraumatic Eyes General: appearance normal, both eyes and all related structures Pupils: Equal, round and reactive pupils present EOM: EOMs intact bilaterally Chest Other: Reproducible, marked tenderness to palpation at anterior chest/sternum Resp Effort & Inspection: normal respiratory effort Auscultation: clear to auscultation bilaterally Cardio Rate: regular rate Rhythm: regular rhythm Heart sounds: S1 normal heart sound present, S2 normal heart sound present, no gallops, no murmurs and no rubs Neuro General: patient oriented x3 and gait normal Cranial nerves: Yes Equal, round and reactive pupils present Psych Affect: Anxious affect present Assessment & Plan Assessment & Plan (1) Chest discomfort: Code(s): R07.89 - Other chest pain Plan: Likely costochondritis Exam of heart and lungs are normal Reviewed prior workup with patient and reassured patient. (2) Fentanyl use disorder, moderate: Code(s): F11.20 - Opioid dependence, uncomplicated Plan: Patient says he is going to detox tomorrow and I encouraged this Coding Level of Care Code Est Pt Level 3 (35783) Diagnoses Chest discomfort R07.89 Fentanyl use disorder, moderate F11.20
== END 2024-08-29 13:43 | disposition home or self-care (01) ==
PROVIDERS: PCP Nurse Practitioner Family; Visit Provider Family Medicine
DX: R07.89 Other chest pain (principal); F11.20 Opioid dependence, uncomplicated

== ENCOUNTER → 2024-08-29 12:45 | Outpatient (BNVA) | payer OTHER, SELFPAY | PROVIDERS: PCP Nurse Practitioner Family | DX: R07.89 Other chest pain (principal); F11.20 Opioid dependence, uncomplicated | CPT/HCPCS: 99212 ==

== ENCOUNTER 2024-09-14 10:12 | Outpatient (AMB) | payer OTHER, SELFPAY ==
--- NOTE | 2024-09-14 10:14 | A.OFFVIS_ITS ---
Vital Signs 09/14/24 10:20 Height 5 ft 9 in Weight 204 lb BMI 30.1 BP 130/66 Blood Pressure Location Rt brachial Position Sitting Pulse 87 Intake Visit Reasons: mass on head Intake Note: Patient referred by pcp Ahsan Kirkpatrick PA-C for mass on rt parietal scalp. Noticed 1m ago. Patient c/o: getting migraines. Tender to touch, enlarging. Lead Security Officer Required: No Accompanied by: Self / Same As Patient Allergies penicillin V Allergy (Unknown, Verified 09/14/24 10:18) Hives, Anaphylaxis Penicillins [PENICILLINS] Allergy (Unknown, Verified 09/14/24 10:18) UNKNOWN HPI Comments Details: Patient presents for evaluation of his right scalp area. He thinks he feels a cyst/mass here. Presents for further evaluation. He has no such lesions elsewhere. Patient was history of migraines. Chart was reviewed and patient evaluated [facility] Surgical History No pertinent past surgical history Social History Housing: Apartment Patient Tobacco Use Status: Never used Tobacco e-Cigarette/Vaping Use: Never Used service: No Current occupational status: employed Cognitive needs: No Hearing needs: No Vision needs: No Physical Exam Vital Signs: Last Vital Signs Pulse 87 09/14/24 10:20 BP 130/66 09/14/24 10:20 BMI result Body Mass Index 30.1 HEENT Other: No cervical periclavicular adenopathy. Patient points to an area in his right temporal where he thinks he feels a mass/cyst. I am unable to palpate any such pathology. Assessment & Plan Assessment & Plan (1) Scalp pain: Code(s): R51.9 - Headache, unspecified Category: Surgical Plan Present, we will treat the patient conservatively. Should he once again have issues with his right temporal area he has been instructed to contact the office with the present there was no obvious mass or cyst demonstrated. All questions answered. Patient otherwise follow-up p.r.n. Coding Level of Care Code New Pt Level 4 (73888) Diagnoses Scalp pain R51.9
[2024-09-14 10:20] VITALS: BP 130/66; PULSE 87; BMI 30.1
--- OUTSIDE RECORDS SUMMARY | 2024-09-14 11:43 | XMS_ITS | Clinical Summary ---
Author Organization [facility] ity Address [address] [place] [address] Care Team Providers Care Turret Punch Operator Name Role Phone Unavailable Primary Care Provider Unavailabl e Social History Tobacco Use Types Packs/Day Years Used Date Smoking Tobacco: Never Assessed Sex and Gender Information Value Date Recorded Sex Assigned at Not on file Legal Sex Male 2:11 AM EST Gender Identity Not on file Sexual [...] patient's age to complete this topic Meningococcal B Vacine Aged Out No lo nger eligible based on patient's age to complete [...]
--- OUTSIDE RECORDS SUMMARY | 2024-09-14 11:43 | XMS_ITS | Clinical Summary ---
Author Organization [facility] Facility Address [address] [address] Care Team Providers Care Knowledge Architect Name Role Phone Jarod Cooper MD Primary Care Provider [phone]- [phone] Medications ASPIRIN 81 PO TAKE 1 TABLET [...] to complete this topic Insurance MEDICAID [place] [facility] MEDICAID [place] [facility] Member Subscriber Plan / Payer (Ef fective 2020-Present) Name:Cristal Aceves Relation to Subscriber:Self Name:Cristal Aceves Payer ID:Not on file Type:Not on file Address: [place] [phone] Care Teams Knowledge Architect Relationship Specialty Start Date End Date Jarod Cooper MD [address] [place] [phone] PCP - General Internal Medicine 09/27/20
--- OUTSIDE RECORDS SUMMARY | 2024-09-14 11:43 | XMS_ITS | Clinical Summary ---
Author Organization [facility] Address [address] [place] [phone] Phone Care Team Providers Care Loading Supervisor Name Role Phone Unavailable Primary Care Provider [...]
== END 2024-09-14 10:25 | disposition home or self-care (01) ==
PROVIDERS: PCP Nurse Practitioner Family; Visit Provider Surgery
DX: R51.9 Headache, unspecified (principal)
CPT/HCPCS: 99204

== ENCOUNTER → 2024-09-14 10:12 | Outpatient (BNVA) | payer OTHER, SELFPAY | PROVIDERS: PCP Nurse Practitioner Family; Visit Provider Surgery | DX: R51.9 Headache, unspecified (principal) | CPT/HCPCS: 99202 ==

== ENCOUNTER 2024-09-29 13:51 | Outpatient (AMB) | payer OTHER, SELFPAY ==
[2024-09-29 14:16] VITALS: BP 128/72; PULSE 80; TEMP 36.6; O2SAT 97; BMI 29.5
--- NOTE | 2024-09-29 14:16 | MHC.PC.OV ---
Vital Signs 09/29/24 14:16 Height 5 ft 9 in Weight 200 lb BMI 29.5 BP 128/72 Blood Pressure Location Lt brachial Position Sitting Pulse 80 Pulse Source Pulse Oximeter Temp 97.9 F Temp Source Oral Pulse Oximetry (%) 97 Intake Visit Reasons: Annual PE Intake Note: pt is here for annual exam Robotic Welding Operator Required: No Accompanied by: Self / Same As Patient Allergies penicillin V Allergy (Unknown, Verified 09/29/24 15:05) Hives, Anaphylaxis Penicillins [PENICILLINS] Allergy (Unknown, Verified 09/29/24 15:05) UNKNOWN Medication List - Last Reconciled 09/29/24 by Ahsan Kirkpatrick, CONTINUOUS MINER- cyclobenzaprine mg PO BEDTIME quetiapine mg PO DAILY Tobacco use date assessed: 09/29/24 Dental Screening Dental Screen Date: 09/29/24 Did you have a dental visit in the last 12 months?: Yes Did you have a dental problem in the last 6 months where you did not have access to dental care?: No Was dental information given to patient?: Patient has dentist HPI Annual PE HPI Details History of Present Illness The patient is a 29-year-old male presenting with a history of intermittent right shoulder pain that has persisted for years without a clear causal event. There have been minor issues during the right upper extremity range of motion, though specific tests were negative for significant pathology. The patient has previously used fentanyl for several years but reports successful cessation, contributing positively to his current mental and physical state. No additional pain or psychological disturbances are noted at this time. Health Maintenance Social History - Substance Use: History of fentanyl use for three to four years, but currently abstinent. Review of Systems - General: Denies chest pain, shortness of breath, fevers, chills, N/V - Gastrointestinal: Denies abdominal pain, bowel issues such as constipation and diarrhea. - Psychological: Denies ongoing depression, anxiety, suicidal or homicidal ideation. Physical Exam General: Cooperative, healthy appearing, comfortable, no acute distress and well developed Orientation: Patient oriented x3 Limitations: Slight discomfort with range of motion of right upper extremity Head: Normal to inspection Ears: Hearing grossly normal bilaterally Nose: Normal external nose present Face and sinus: Normal facial exam Eyes: Appearance normal, both eyes and all related structures Neck: Normal visual inspection and Yes full ROM Respiratory: Normal respiratory effort and able to speak in complete sentences. Clear to auscultation bilaterally Cardiovascular: Regular rate and rhythm. Normal S1 and S2 GI: Normal to inspection. Soft to palpation and nontender Skin: No rashes or lesions noted Neuro: Patient oriented x3 Extremities: Slight discomfort with range of motion of right upper extremity, otherwise normal to inspection, neg neers, neg diez, neg jobes Results Plan The plan includes initiating physical therapy for the patient's chronic right shoulder pain, following negative specific test results for bone-related issues. Imaging will be reconsidered based on physical therapy outcomes. The patient is currently managing well without fentanyl, and no additional interventions are needed. Discussion Notes I discussed with the patient the plan for addressing his chronic right shoulder pain through physical therapy, and the decision to defer imaging unless therapy results indicate a need. We reviewed his progress in discontinuing fentanyl and its positive impact on his overall health. We talked about the importance of physical rehabilitation and monitoring for future management. Patient Instructions - Begin physical therapy for the right shoulder as scheduled. - Monitor shoulder discomfort and report any changes or intensification in symptoms. - Maintain abstinence from fentanyl and monitor overall well-being. - Follow up for reassessment if symptoms worsen or do not improve with therapy. [facility] Surgical History No pertinent past surgical history Social History Housing: Apartment Patient Tobacco Use Status: Never used Tobacco e-Cigarette/Vaping Use: Never Used service: No Current occupational status: employed Cognitive needs: No Hearing needs: No Vision needs: No Questionnaire PHQ-9 Over the last 2 weeks, how often have you been bothered by any of the following problems? 1. Little interest or pleasure in doing things: not at all 2. Feeling down, depressed, or hopeless: not at all 3. Trouble falling or staying asleep, or sleeping too much: not at all 4. Feeling tired or having little energy: not at all 5. Poor appetite or overeating: not at all 6. Feeling bad about yourself - or that you are a failure or have let yourself or your family down: not at all 7. Trouble concentrating on things, such as reading the newspaper or watching television: not at all 8. Moving or speaking so slowly that other people could have noticed. Or the opposite - being so fidgety or restless that you have been moving around a lot more than usual: not at all 9. Thoughts that you would be better off or of hurting yourself in some way: not at all Total score: 0 Depression Screening Interpretation: Negative Depression Screening Done: Yes 58540 - PHQ-9 Billing: Yes Source: Developed by Drs. David Madison, Jasmine Grant, Karan Vaughn and colleagues, with an educational stephanie from [employer]. Thrive Questionnaire Date Thrive assessed: 09/29/24 I am a: Patient What is your living situation today?: I have a steady place to live Within the past 12 months, did the food you bought not last and you didn't have the money to get more?: Never true Within the past 12 months, did you worry whether your food would run out before you got money to buy more?: Never true Do you have trouble paying for medicines?: No Do you have trouble getting transportation to medical appointments?: No Do you have trouble paying your heating and electricity bill?: No Do you have trouble taking care of your child, family member or friend?: I choose not to answer this question Do you have trouble with day-to-day activities such as bathing, preparing meals, shopping, managing finances, etc.?: No Are you currently unemployed and looking for a job?: Yes Are you interested in more education?: Yes Please select the resources that you would like help with: None Currently or been in a relationship where the following occur: No concerns reported THRIVE Score: 0 AUDIT C Alcohol Use Questionnaire (AUDIT-C) 1. How often do you have a drink containing alcohol?: Monthly or less 2. How many drinks containing alcohol do you have on a typical day when you are drinking?: 1 or 2 3. How often do you have six or more drinks on one occasion?: Never Total Score: 1 Score Reviewed/Action Taken: Yes SALVADOR-7 AMB Questionnaire SALVADOR-7 Date SALVADOR - 7 assessed: 09/29/24 Feeling nervous, anxious, or on edge: 0 = Not at all Not being able to stop or control worryin = Several days Worrying too much about different things: 0 = Not at all Trouble relaxin = Not at all Being so restless that it is hard to sit still: 0 = Not at all Becoming easily annoyed or irritable: 0 = Not at all Feeling afraid as if something awful might happen: 0 = Not at all Total SALVADOR-7 score (0-4 normal; 5-9 mild; 10-14 moderate; 15-21 severe): 1 Source: Developed by Drs. David Madison, Jasmine Grant, Karan Vaughn and colleagues, with an educational stephanie from [employer]. SALVADOR-7 Assessment Billing SALVADOR-7 Assessment Tool: SALVADOR-7 Assessment 64461 Physical exam (Primary Care) Vital Signs: Last Vital Signs Temp 97.9 F 09/29/24 14:16 Pulse 80 09/29/24 14:16 BP 128/72 09/29/24 14:16 Pulse Ox 97 09/29/24 14:16 BMI result Body Mass Index 29.5 Tobacco/Smoking Status: Tobacco use Status Tobacco use date assessed 09/29/24 09/29/24 14:18 Patient Tobacco Use Status Never used Tobacco 09/29/24 14:18 e-Cigarette/Vaping Use Never Used 09/29/24 14:18 PHQ-9: PHQ-9 Score PHQ-9: Total score 0 09/29/24 14:18 Depression Screening Interpretation: Negative Thrive Assessment: Date of Thrive Assessment Date Thrive assessed 09/29/24 09/29/24 14:18 Currently or been in a relationship where the following occur: No concerns reported Coding Level of Care Code Est Pt Prev Care 18-39y(37253) Diagnoses Physical exam Z00.00 Right shoulder pain M25.511 Additional Codes SALVADOR-7 Assessment Billing - SALVADOR-7 Assessment Tool: SALVADOR-7 Assessment 50799 ([id number]) PHQ-9 - 48102 - PHQ-9 Billing: Yes ([id number]) Assessment & Plan Assessment & Plan (1) Physical exam: Code(s): Z00.00 - Encounter for general adult medical examination without abnormal findings Category: Medical (2) Right shoulder pain: Code(s): M25.511 - Pain in right shoulder Category: Medical Plan . Orders: Orders Comprehensive [place]. Panel Fast Today Z00.00 - Encounter for general adult medical examination without abnormal findings TSH reflex Free T4 Today Z00.00 - Encounter for general adult medical examination without abnormal findings Lipid Panel Today Z00.00 - Encounter for general adult medical examination without abnormal findings Complete Blood Count Auto Diff Today Z00.00 - Encounter for general adult medical examination without abnormal findings UA CC w/rflx Micro + Cult Today Z00.00 - Encounter for general adult medical examination without abnormal findings PT Evaluation and Treatment Today M25.511 - Pain in right shoulder
--- OUTSIDE RECORDS SUMMARY | 2024-09-29 16:25 | XMS_ITS | Clinical Summary ---
Author Organization [facility] ity Address [address] [place] [address] Care Team Providers Care Kitchen Clerk Name Role Phone Unavailable Primary Care Provider [...]
--- OUTSIDE RECORDS SUMMARY | 2024-09-29 16:25 | XMS_ITS | Clinical Summary ---
Author Organization [facility] Facility Address [address] [address] Care Team Providers Care Beauty Sales Advisor Name Role Phone Jarod Cooper MD Primary Care Provider [phone]- [phone] Medications ASPIRIN 81 PO TAKE 1 TABLET [...] to complete this topic Insurance [place] [facility] [place] [facility] Member Subscriber Plan / Payer (Ef fective 2020-Present) Name:Cristal Aceves Relation to Subscriber:Self Name:Cristal Aceves Payer ID:Not on file Type:Not on file Address: [place] [id number] Care Teams Beauty Sales Advisor Relationship Specialty Start Date End Date Jarod Cooper MD [address] [place] [phone] PCP - General Internal Medicine 09/27/20
--- OUTSIDE RECORDS SUMMARY | 2024-09-29 16:25 | XMS_ITS | Clinical Summary ---
Author Organization [facility] Address [address] [place] [id number] Phone Care Team Providers Care Patrol Police Lieutenant Name Role Phone Unavailable Primary Care Provider [...]
== END 2024-09-29 15:14 | disposition home or self-care (01) ==
PROVIDERS: PCP Nurse Practitioner Family; Visit Provider Nurse Practitioner Family
DX: Z00.00 Encounter for general adult medical examination without abnormal findings (principal); M25.511 Pain in right shoulder

== ENCOUNTER → 2024-09-29 13:51 | Outpatient (BNVA) | payer OTHER, SELFPAY | PROVIDERS: PCP Nurse Practitioner Family; Visit Provider Nurse Practitioner Family | DX: Z00.01 Encounter for general adult medical examination with abnormal findings (principal); M25.511 Pain in right shoulder | CPT/HCPCS: 96127; 99395 ==

== ENCOUNTER 2024-11-04 16:13 | Outpatient (AMB) | payer OTHER, SELFPAY ==
[2024-11-04 16:17] VITALS: BP 120/74; PULSE 73; TEMP 37; O2SAT 98
--- NOTE | 2024-11-04 16:17 | AM.OFFWIN_ITS ---
Intake Vital Signs 11/04/24 16:17 Weight 199 lb BP 120/74 Blood Pressure Location Rt brachial Position Sitting Pulse 73 Pulse Source Pulse Oximeter Temp 98.6 F Temp Source Oral Pulse Oximetry (%) 98 Oxygen Delivery Method Room Air Intake Visit Reasons: EP Neck/Spine pain ~ not work related Intake Note: Patient here for neck and back pain that has been present for about 1 week. Patient Tobacco Use Status: Never used Tobacco Allergies penicillin V Allergy (Unknown, Verified 09/29/24 15:05) Hives, Anaphylaxis Penicillins [PENICILLINS] Allergy (Unknown, Verified 09/29/24 15:05) UNKNOWN Do you need a note to return to daycare/school/sports/work: No HPI HPI Comments History of Present Illness Details He presents to office with neck stiffness He started working out last week with arm exercises, running, overhead lifting and playing basketball He started feeling pain in bilateral upper back Now pain bilaterally radiation into front of neck/shoulders Going to rehab tomorrow; self called to get admitted; [facility] in [facility] x 1 week; hx of fentanyl abuse and had recent relapse Patient denies headaches with it No medicine tried aside frim fentayl pills He said it somewhat helps pain No vision changed, difficulty swallowing, ST, changes in appetite No other pain radiation Denies CP PFSH Surgical History No pertinent past surgical history Social History Housing: Apartment Patient Tobacco Use Status: Never used Tobacco e-Cigarette/Vaping Use: Never Used service: No Current occupational status: employed Cognitive needs: No Hearing needs: No Vision needs: No Review of Systems Const Denies chills, Denies fever(s), Denies frequent falls, Denies headache(s) and Denies weakness Eyes Denies blurry vision and Denies change in vision ENT Denies dizziness, Denies headache(s), Reports neck pain, Denies sore throat, Denies throat swelling and Denies other (denies difficulty swallowing) Card Denies chest pain, Denies syncope, Denies rapid heart rate and Denies dyspnea Resp Denies cough and Denies dyspnea GI Denies nausea and Denies vomiting Musc Denies back pain, Reports neck pain, Denies numbness, Reports stiffness and Denies tingling Skin/Breast Denies rash Neuro Denies confusion, Denies dizziness, Denies syncope, Denies frequent falls, Denies headache(s), Denies numbness, Denies tingling, Denies paresthesias and Denies weakness Psych Denies confusion Aller/Immun Denies throat swelling Physical Exam Vital Signs: Last Vital Signs Temp 98.6 F 11/04/24 16:17 Pulse 73 11/04/24 16:17 BP 120/74 11/04/24 16:17 Pulse Ox 98 11/04/24 16:17 Oxygen Delivery Method Room Air 11/04/24 16:17 General: Non-toxic, NAD. Speaking full sentences. Skin: Warm dry throughout. No neck edema, erythema rashes or vesicular lesions Eye: EOMI, PERRL HENT: Airway patent. Uvula midline. No pharyngeal erythema or edema. No CITY SANITARIAN. Bilateral canals clear. TM non-erythematous, non-bulging. No TM perforation or hemotympanum noted. Neck: No point c-spine ttp. DIffuse bilateral trapezei muscle ttp juanjo extension. No thoracic or lumbar midline ttp. Decreased ROM all directions Respiratory: CTA bilaterally. No wheezes, rales or rhonchi Cardiac: RRR. No murmur. Radial pulse intact MSK: See neck exam. No paravertebral lumabr muscle ttp. Pain equally bilateral with trapezi muscle and cervical/upper throacic paravertebral muscle.s 5/5 roving teller strength. Neurology: Alert. Neurovasc intact digits upper extremities. No aphasia or facial droop. Gait without abnormality Psych: Good mood and affect Const General: No confusion Orientation/consciousness: No confusion Neuro General: No confusion Assessment & Plan Assessment & Plan (1) Trapezius muscle spasm: Code(s): M62.838 - Other muscle spasm Plan: Patient seen and evaluated. No trauma or injury and vital signs are stable He had onset of discomfort after exercise We discussed the extent of side effects from substance abuse and discussed plan to go to rehab tomorrow He plans to be there 1 week and will go to PT upon return Muscle relaxant (lethargy, no alclohol, illicit substances driving) explained to patient. Nparoxen BID prn He will use warm compress Discussed warning s/s to monitor for such as CP, SOB, dizziness, syncope, vision changes, headache, fever weakness and report immediately to ER Patient gave verbal understanding and had no additional questions or concerns at time of discharge All questions answered Orders: Orders PT Evaluation and Treatment Today M6.838 - Other muscle spasm Medications: New naproxen 500 mg PO BID PRN 14 tabs 0RF pain methocarbamol + lethargy. No alcohol, illicit drugs or driving under influence. Do not take with other myuscle relaxant scripts like flexeril 500 mg PO TID PRN 14 tabs 0RF muscle pain Coding Level of Care Code Est Pt Level 3 (77169) Diagnoses Trapezius muscle spasm M62.83
--- OUTSIDE RECORDS SUMMARY | 2024-11-04 18:33 | XMS_ITS | Clinical Summary ---
Author Organization [facility] Address [address] [place] [id number] Phone Care Team Providers Care Fringe Knotter Name Role Phone Unavailable Primary Care Provider [...]
--- OUTSIDE RECORDS SUMMARY | 2024-11-04 18:33 | XMS_ITS | Clinical Summary ---
Author Organization [facility] ity Address [address] [place] [address] Care Team Providers Care Strong Nitric Operator Name Role Phone Unavailable Primary Care [...] Vaccine (2023-2 5 season) 2024 Influenza Vaccine (Season Ended) 2025 HIB Vaccines Aged Out No longer eligi [...] age to complete this topic Meningococcal B Vaccine Aged Out No l onger eligible based on patient's age to complete [...]
--- OUTSIDE RECORDS SUMMARY | 2024-11-04 18:33 | XMS_ITS | Clinical Summary ---
Author Organization [facility] Facility Address [address] [address] Care Team Providers Care Music Coordinator Name Role Phone Jarod Cooper MD Primary Care Provider +1- [phone] Medications ASPIRIN 81 PO TAKE 1 TABLET [...] - 19+ 3-dose series) 2012 Influenza Vaccine (Season Ended) 2025 Pneumococcal Vaccine: Peds ( 0 to 5 Years) and At-Risk Patients (6 to 49 Years) Aged Out No longer eligible b ased on patient's age to complete this topic Insurance Medicaid [place] [facility] [place] [facility] Member Subscriber Plan / Payer (Ef fective 2020-Present) Name:Cristal Aceves Relation to Subscriber:Self Name:Cristal Aceves Payer ID:Not on file Type:Not on file Address: [place] [id number] Care Teams Music Coordinator Relationship Specialty Start Date End Date Jarod Cooper MD [address] [place] [phone] PCP - General Internal Medicine 09/27/20
== END 2024-11-04 16:55 | disposition home or self-care (01) ==
PROVIDERS: PCP Nurse Practitioner Family; Visit Provider Physician Assistant
DX: M62.838 Other muscle spasm (principal)

== ENCOUNTER → 2024-11-04 16:13 | Outpatient (BNVA) | payer OTHER, SELFPAY | PROVIDERS: PCP Nurse Practitioner Family; Visit Provider Physician Assistant | DX: M62.838 Other muscle spasm (principal) | CPT/HCPCS: 99212 ==

== ENCOUNTER 2024-11-18 13:44 | Outpatient (REF) | payer OTHER, SELFPAY ==
--- OUTSIDE RECORDS SUMMARY | 2024-11-18 15:02 | XMS_ITS | Clinical Summary ---
Author Organization [facility] Facility Address [address] [address] Care Team Providers Care Ethanol Maintenance Mechanic Name Role Phone Jarod Cooper MD Primary Care Provider +1- [phone] Medications ASPIRIN 81 PO TAKE 1 TABLET [...] age to complete this topic Insurance Medicaid [place] [facility] [place] [facility] Member Subscriber Plan / Payer (Ef fective 2020-Present) Name:Cristal Aceves Relation to Subscriber:Self Name:Cristal Aceves Payer ID:Not on file Type:Not on file Address: [place] [id number] Care Teams Ethanol Maintenance Mechanic Relationship Specialty Start Date End Date Jarod Cooper MD [address] [place] [phone] PCP - General Internal Medicine 09/27/20
--- OUTSIDE RECORDS SUMMARY | 2024-11-18 15:02 | XMS_ITS | Clinical Summary ---
Author Organization [facility] Address [address] [place] [address] Phone Care Team Providers Care Boring Mill Operator Name Role Phone Unavailable Primary Care [...]
--- OUTSIDE RECORDS SUMMARY | 2024-11-18 15:02 | XMS_ITS | Clinical Summary ---
Author Organization [facility] ity Address [address] [place] [address] Care Team Providers Care Supervising Airplane Pilot Name Role Phone Unavailable Primary Care Provider [...]
[2024-11-18 16:14] LABS: MANUAL DIFF FLAG NO
[2024-11-18 16:20] LABS: Basophils Percent Auto 0.2 % (0-2); Eosinophils Percent Auto 0.4 % (0-4); Hematocrit 44.3 % (42.0-52.0); Hemoglobin 15.1 g/dl (14.0-18.0); Imm Gran Abs Auto 0.02 X10*3/uL (0.00-0.03); Imm Gran Pct Auto 0.2 % (0.0-0.4); Lymphocytes Absolute Auto 1.7 X10*3/uL (1.2-4.9); Lymphocytes Percent Auto 20.5 % (20-40); Mean Corpuscular HGB Conc 34.1 g/dl (31.0-36.0); Mean Corpuscular Hemoglobin 29.4 pg (27.0-33.0); Mean Corpuscular Volume 86.4 fL (80.0-98.0); Monocytes Absolute Auto 0.4 X10*3/uL (0.1-1.2); Monocytes Percent Auto 5.5 % (2-11); Neutrophils Absolute Auto 5.9 x10*3/uL (2.0-8.3); Neutrophils Percent Auto 73.2 % (45-73); Platelet Count 207 X10*3/uL (160-400); Red Blood Count 5.13 X10*6/uL (4.60-5.80); Red Cell Distribution Width 12.1 % (11.0-16.0); White Blood Count 8.1 X10*3/uL (4.8-10.8)
[2024-11-18 16:22] LABS: Appearance Urine Clear; Color Urine Yellow; Glucose Urine UA Negative (Negative); Leukocyte Esterase Urine Negative (Negative); Nitrite Urine Negative (Negative); UMIC TRIGGER UACC YES; Urine Blood Small (1+) (Negative); Urine Ketones Negative (Negative); Urine Protein Negative (Neg-Trace)
[2024-11-18 16:41] LABS: Bacteria Urine None Seen (None Seen); Hyaline Casts Urine 0-2 /LPF (0-2); RBC Urine 0-2 /HPF (0-2); Squamous Epithelial Cell Urine 0-2 /HPF (0-2); WBC Urine 0-5 /HPF (0-5)
[2024-11-18 16:54] LABS: Alanine Aminotransferase 22 U/L (0-40); Albumin Level 4.4 g/dL (3.5-5.0); Alkaline Phosphatase 68 U/L (39-117); Anion Gap 11 (12-20); Aspartate Amino Transferase 24 U/L (5-37); Blood Urea Nitrogen 16 mg/dL (9-16); Calcium 9.4 mg/dL (8.4-10.2); Carbon Dioxide 25 mmol/L (22-29); Chloride 110 mmol/L (96-108); Cholesterol 147 mg/dL (<200); Estimated Glomerular Filt Rate > 60; Glucose Fasting 94 mg/dL (60-99); HDL Cholesterol 54 mg/dL (>40); LDL Cholesterol Calculated 87 mg/dL (<100); Potassium 3.7 mmol/L (3.3-5.1); Sodium 142 mmol/L (135-145); Total Protein 7.5 g/dL (6.5-8.0); Triglycerides 33 mg/dL (<150)
[2024-11-18 17:09] LABS: TSH reflex Free T4 0.67 uIU/mL (0.32-4.0)
== END 2024-11-18 13:45 | disposition home or self-care (01) ==
LOC: HO.HMGCLDS 13:44
PROVIDERS: PCP Nurse Practitioner Family; Visit Provider Nurse Practitioner Family
DX: Z00.00 Encounter for general adult medical examination without abnormal findings (principal)
CPT/HCPCS: 36415; 80053; 80061; 81001; 84443; 85025

== ENCOUNTER 2024-12-24 14:01 | Outpatient (REF) | payer OTHER, SELFPAY ==
[2024-12-24 16:06] LABS: Urine Cytology See Pathology rpt
[2024-12-24 16:08] LABS: Appearance Urine Clear; Color Urine Dark Yellow; Glucose Urine UA Negative (Negative); Leukocyte Esterase Urine Negative (Negative); Nitrite Urine Negative (Negative); Specific Gravity - Urine >= 1.030 (1.005-1.025); Urine Blood Negative (Negative); Urine Ketones Trace mg/dL (Negative); Urine Protein Negative (Neg-Trace)
== END 2024-12-24 14:02 | disposition home or self-care (01) ==
LOC: HO.HMGCLDS 14:01
PROVIDERS: PCP Nurse Practitioner Family; Visit Provider Nurse Practitioner Family
DX: L98.9 Disorder of the skin and subcutaneous tissue, unspecified (principal); R31.29 Other microscopic hematuria
CPT/HCPCS: 81003; 87086; 88112; 96127; 99212

== ENCOUNTER 2024-12-24 14:01 | Outpatient (AMB) | payer OTHER, SELFPAY ==
--- NOTE | 2024-12-24 14:12 | A.OFFPC_ITS ---
Vital Signs 12/24/24 14:15 12/24/24 14:28 Height 5 ft 9 in Weight 197 lb 6 oz BMI 29.1 BP 126/92 H 112/78 Blood Pressure Location Lt brachial Lt brachial Position Sitting Sitting Pulse 79 Pulse Source Pulse Oximeter Temp 98.2 F Temp Source Oral Pulse Oximetry (%) 94 Oxygen Delivery Method Room Air Intake Visit Reasons: 3m follow up Intake Note: Pt is here for 3m follow up. Allergies penicillin V Allergy (Unknown, Verified 12/24/24 15:16) Hives, Anaphylaxis Penicillins [PENICILLINS] Allergy (Unknown, Verified 12/24/24 15:16) UNKNOWN Medication List - Last Reconciled 12/24/24 by GILLIAN Yeboah No Known Home Meds Tobacco use date assessed: 12/24/24 Dental Screening Dental Screen Date: 12/24/24 Did you have a dental visit in the last 12 months?: Yes Did you have a dental problem in the last 6 months where you did not have access to dental care?: No Was dental information given to patient?: Patient has dentist HPI 3m follow up HPI Details Patient is here for follow-up for microscopic hematuria. He denies any fevers, chills, flank pains, history of kidney stones. He further denies any actual visual blood in his urine, or burning with urination. I did order a CT urogram, a cytology, and a another urinalysis, and he is to follow up with Urology in January. He further reports approximately 6 months ago after being bit by a dog he developed these macular lesions to his bilateral upper extremities. He denies any itching or tenderness. Physical Exam General: Cooperative, healthy appearing, comfortable, no acute distress and well developed Orientation: Patient oriented x3 Limitations: No limitations Head: Normal to inspection Ears: Hearing grossly normal bilaterally Nose: Normal external nose present Face and sinus: Normal facial exam Eyes: Appearance normal, both eyes and all related structures Neck: Normal visual inspection and Yes full ROM Respiratory: Normal respiratory effort and able to speak in complete sentences. Clear to auscultation bilaterally Cardiovascular: Regular rate and rhythm. Normal S1 and S2 GI: Normal to inspection. 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 Neuro: Patient oriented x3 Extremities: Normal to inspection Results Plan follow up urine studies, ct urogram, urology. derm referral placed. [facility] Surgical History No pertinent past surgical history Social History Housing: Apartment Patient Tobacco Use Status: Never used Tobacco e-Cigarette/Vaping Use: Never Used service: No Current occupational status: employed Cognitive needs: No Hearing needs: No Vision needs: No Questionnaire PHQ-9 Over the last 2 weeks, how often have you been bothered by any of the following problems? 1. Little interest or pleasure in doing things: not at all 2. Feeling down, depressed, or hopeless: not at all 3. Trouble falling or staying asleep, or sleeping too much: not at all 4. Feeling tired or having little energy: not at all 5. Poor appetite or overeating: not at all 6. Feeling bad about yourself - or that you are a failure or have let yourself or your family down: not at all 7. Trouble concentrating on things, such as reading the newspaper or watching television: not at all 8. Moving or speaking so slowly that other people could have noticed. Or the opposite - being so fidgety or restless that you have been moving around a lot more than usual: not at all 9. Thoughts that you would be better off or of hurting yourself in some way: not at all Total score: 0 Depression Screening Interpretation: Negative Depression Screening Done: Yes 49480 - PHQ-9 Billing: Yes Source: Developed by Drs. David Madison, Jasmine Grant, Karan Vaughn and colleagues, with an educational stephanie from [employer]. Thrive Questionnaire Date Thrive assessed: 12/24/24 I am a: Patient What is your living situation today?: I have a steady place to live Within the past 12 months, did the food you bought not last and you didn't have the money to get more?: Never true Within the past 12 months, did you worry whether your food would run out before you got money to buy more?: Never true Do you have trouble paying for medicines?: No Do you have trouble getting transportation to medical appointments?: No Do you have trouble paying your heating and electricity bill?: No Do you have trouble taking care of your child, family member or friend?: I choose not to answer this question Do you have trouble with day-to-day activities such as bathing, preparing meals, shopping, managing finances, etc.?: No Are you currently unemployed and looking for a job?: Yes Are you interested in more education?: Yes Please select the resources that you would like help with: None Currently or been in a relationship where the following occur: No concerns reported THRIVE Score: 0 AUDIT C Alcohol Use Questionnaire (AUDIT-C) 1. How often do you have a drink containing alcohol?: Monthly or less 2. How many drinks containing alcohol do you have on a typical day when you are drinking?: 1 or 2 3. How often do you have six or more drinks on one occasion?: Never Total Score: 1 Score Reviewed/Action Taken: Yes SALVADOR-7 AMB Questionnaire SALVADOR-7 Date SALVADOR - 7 assessed: 12/24/24 Feeling nervous, anxious, or on edge: 0 = Not at all Not being able to stop or control worryin = Several days Worrying too much about different things: 0 = Not at all Trouble relaxin = Not at all Being so restless that it is hard to sit still: 0 = Not at all Becoming easily annoyed or irritable: 0 = Not at all Feeling afraid as if something awful might happen: 0 = Not at all Total SALVADOR-7 score (0-4 normal; 5-9 mild; 10-14 moderate; 15-21 severe): 1 Source: Developed by Drs. David Madison, Jasmine Grant, Karan Vaughn and colleagues, with an educational stephanie from [employer]. SALVADOR-7 Assessment Billing SALVADOR-7 Assessment Tool: SALVADOR-7 Assessment 02088 Physical exam (Primary Care) Vital Signs: Last Vital Signs Temp 98.2 F 12/24/24 14:15 Pulse 79 12/24/24 14:15 BP 112/78 12/24/24 14:28 Pulse Ox 94 12/24/24 14:15 Oxygen Delivery Method Room Air 12/24/24 14:15 BMI result Body Mass Index 29.1 Tobacco/Smoking Status: Tobacco use Status Tobacco use date assessed 12/24/24 12/24/24 14:20 Patient Tobacco Use Status Never used Tobacco 12/24/24 14:20 e-Cigarette/Vaping Use Never Used 12/24/24 14:20 PHQ-9: PHQ-9 Score PHQ-9: Total score 0 12/24/24 14:27 Depression Screening Interpretation: Negative Thrive Assessment: Date of Thrive Assessment Date Thrive assessed 12/24/24 12/24/24 14:20 Currently or been in a relationship where the following occur: No concerns reported Coding Level of Care Code Est Pt Level 3 (32455) Diagnoses Skin lesions L98.9 Microhematuria R31.29 Additional Codes SALVADOR-7 Assessment Billing - SALVADOR-7 Assessment Tool: SALVADOR-7 Assessment 03439 ([id number]) PHQ-9 - 69084 - PHQ-9 Billing: Yes ([id number]) Assessment & Plan Assessment & Plan (1) Skin lesions: Code(s): L98.9 - Disorder of the skin and subcutaneous tissue, unspecified Category: Medical (2) Microhematuria: Code(s): R31.29 - Other microscopic hematuria Category: Medical Plan . Orders: Orders CT urogram Today R31.29 - Other microscopic hematuria Referrals Dermatology Referral L98.9 - Disorder of the skin and subcutaneous tissue, unspecified
[2024-12-24 14:15] VITALS: BP 126/92; PULSE 79; TEMP 36.8; O2SAT 94; BMI 29.1
[2024-12-24 14:28] VITALS: BP 112/78
--- OUTSIDE RECORDS SUMMARY | 2024-12-24 16:32 | XMS_ITS | Clinical Summary ---
Author Organization [facility] Facility Address [address] [address] Care Team Providers Care Crack Off Person Name Role Phone Jarod Cooper MD Primary Care Provider [phone]- [phone] Medications ASPIRIN 81 PO TAKE 1 TABLET [...] age to complete this topic Insurance [place] [facility] [place] [facility] Member Subscriber Plan / Payer (Ef fective 2020-Present) Name:Cristal Aceves Relation to Subscriber:Self Name:Cristal Aceves Payer ID:Not on file Type:Not on file Address: [place] [id number] Care Teams Crack Off Person Relationship Specialty Start Date End Date Jarod Cooper MD [address] [place] [phone] PCP - General Internal Medicine 09/27/20
== END 2024-12-24 15:38 | disposition home or self-care (01) ==
LOC: HO.HMCC 14:01
PROVIDERS: PCP Nurse Practitioner Family; Visit Provider Nurse Practitioner Family
DX: L98.9 Disorder of the skin and subcutaneous tissue, unspecified (principal); R31.29 Other microscopic hematuria

== ENCOUNTER 2025-01-20 15:58 | Outpatient (REF) | payer OTHER, SELFPAY ==
--- NOTE | ~2025-01-20 | CT_ITS ---
CLINICAL HISTORY: R31.29 - Other microscopic hematuria CT abdomen and pelvis with and without contrast Comparison: None Findings: The heart is not enlarged. Lung bases are clear. Left lower lobe 3 mm nodules on axial series 9, images 39, 61, and 68. No follow-up is required unless the patient is considered high-risk in which case an optional follow-up chest CT could be performed in 12 months. 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 The liver is otherwise unremarkable. No evidence of urolithiasis, urinary obstruction, suspicious mass, or renal collecting system filling defect. Gallbladder and other abdominal solid organs are unremarkable. Small fat containing umbilical hernia. No bowel obstruction. Normal appendix. Pelvic structures unremarkable. 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 Minimal degenerative change of the spine. IMPRESSION: No cause for hematuria is identified. This document has been electronically signed by: Patrick Hernandez DO on 01/22/2025 12:52:44
--- OUTSIDE RECORDS SUMMARY | 2025-01-20 16:02 | XMS_ITS | Clinical Summary ---
Author Organization [facility] Facility Address [address] [address] Care Team Providers Care Scalehouse Attendant Name Role Phone Jarod Cooper MD Primary Care Provider +1- [phone] Medications ASPIRIN 81 PO TAKE 1 TABLET [...] 19+ 3-dose series) 2012 Influenza Vaccine (#1) 2025 Pneumococcal Vaccine: Peds ( 0 to 5 Years) and At-Risk Patients (6 to 49 Years) Aged Out No longer eligible b ased on patient's age to complete this topic Insurance Medicaid [place] [facility] Member Subscriber Plan / Payer (Ef fective 2020-Present) Name:Cristal Aceves Relation to Subscriber:Self Name:Cristal Aceves Payer ID:Not on file Type:Not on file Address: [address] [address] Medicaid [place] [facility] Member Subscriber Plan / Payer (Ef fective 2020-Present) Name:Cristal Aceves Relation to Subscriber:Self Name:Cristal Aceves Payer ID:Not on file Type:Not on file Address: [place] [phone] Care Teams Scalehouse Attendant Relationship Specialty Start Date End Date Jarod Cooper MD [address] [place] [phone] PCP - General Internal Medicine 09/27/20
--- OUTSIDE RECORDS SUMMARY | 2025-01-20 16:02 | XMS_ITS | Clinical Summary ---
Author Organization [facility] ity Address [address] [place] [address] Care Team Providers Care Edge Polisher Name Role Phone Unavailable Primary Care Provider [...] (2023-2 5 season) 2024 Influenza Vaccine (#1) 2025 HIB Vaccines Aged Out No longer [...]
--- OUTSIDE RECORDS SUMMARY | 2025-01-20 16:02 | XMS_ITS | Clinical Summary ---
Author Organization [facility] Address [address] [place] [phone] Phone Care Team Providers Care Environmental Monitoring Technician Name Role Phone Unavailable Primary Care Provider [...] AM EDT Pulse - - Temperature 36.9 C (98.5 F) 11/24/2009 12:00 AM EDT Respiratory Rate - - Oxygen Saturation - [...] 11/26/2016 11/26/2006, 07/22/1998, 12/13/1995, Additional history exists COVID-19 Vaccine ( season) 2024 Influenza Vaccines (#1) 2025 Hepatitis B Vaccines Completed 06/13/1994, 1993, 1993 [...]
[2025-01-20] MEDS: iohexoL 350 MG/ML 100 ML INFUS..BTL 85 ML IV (16:37)
== END 2025-01-20 15:59 | disposition home or self-care (01) ==
LOC: HO.CT 15:58
PROVIDERS: PCP Nurse Practitioner Family; Visit Provider Nurse Practitioner Family
DX: R31.29 Other microscopic hematuria (principal)
CPT/HCPCS: 74178; Q9967

== ENCOUNTER → 2025-01-20 16:01 | Outpatient (BNV) | payer OTHER, SELFPAY | PROVIDERS: PCP Nurse Practitioner Family; Visit Provider Radiology Diagnostic Radiology | DX: R31.29 Other microscopic hematuria (principal) | CPT/HCPCS: 74178 ==

== ENCOUNTER 2025-01-29 15:04 | Outpatient (REF) | payer OTHER, SELFPAY | END 2025-01-29 15:05 | disposition home or self-care (01) | LOC: HO.LAB 15:04 | PROVIDERS: PCP Nurse Practitioner Family; Visit Provider Urology | DX: R31.29 Other microscopic hematuria (principal); R80.9 Proteinuria, unspecified | CPT/HCPCS: 81003; 88112; 99202 ==

== ENCOUNTER 2025-01-29 15:04 | Outpatient (AMB) | payer OTHER, SELFPAY ==
--- OUTSIDE RECORDS SUMMARY | 2025-01-29 15:06 | XMS_ITS | Clinical Summary ---
Author Organization [facility] ity Address [address] [place] [address] Care Team Providers Care Mash Grinder Name Role Phone Unavailable Primary Care Provider [...]
--- OUTSIDE RECORDS SUMMARY | 2025-01-29 15:06 | XMS_ITS | Clinical Summary ---
Author Organization [facility] Facility Address [address] [address] Care Team Providers Care Sugar Cane Grower Name Role Phone Jarod Cooper MD Primary Care Provider +1- [phone] Medications ASPIRIN 81 PO TAKE 1 TABLET [...] age to complete this topic Insurance Medicaid [place] [facility] [place] [facility] Member Subscriber Plan / Payer (Ef fective 2020-Present) Name:Cristal Aceves Relation to Subscriber:Self Name:Cristal Aceves Payer ID:Not on file Type:Not on file Address: [place] [id number] Care Teams Sugar Cane Grower Relationship Specialty Start Date End Date Jarod Cooper MD [address] [place] [phone] PCP - General Internal Medicine 09/27/20
--- OUTSIDE RECORDS SUMMARY | 2025-01-29 15:06 | XMS_ITS | Clinical Summary ---
Author Organization [facility] Address [address] [place] [address] Phone Care Team Providers Care Soft Metals Hand Engraver Name Role Phone Unavailable Primary Care Provider [...]
--- NOTE | 2025-01-29 15:12 | A.OFFVIS_ITS ---
Intake Visit Reasons: microscopic hematuria Intake Note: New patient presents today for initial visit for microscopic hematuria Urology Medication:None Blood Thinner:None Antibiotic Allergies:None Allergies penicillin V Allergy (Unknown, Verified 01/29/25 15:13) Hives, Anaphylaxis Penicillins (PENICILLINS) Allergy (Unknown, Verified 01/29/25 15:13) UNKNOWN HPI Comments Details: 01/29/25--Cristal is a 29-year-old male who is here for evaluation for microscopic hematuria. I have discussed reasons for blood in the urine may include but are not limited to kidney stones, cancer in the urinary tract, BPH, or inflammatory conditions of the urinary tract. I have discussed workup to include cystoscopy evaluation. History of Present Illness - The patient is a 29-year-old male presenting with evaluation for microscopic hematuria. - The patient has been aware of blood in the urine for several years, initially presenting as small traces intermittently, but recently becoming more consiste nt. - No prior evaluations were conducted due to the minimal presence of blood. - The patient reports occasional burning sensation during urination. - A CT scan was performed, which showed no abnormalities in the urinary tract, such as kidney stones or masses. - The patient has no history of cigarette smoking, which is a risk factor for urinary tract cancers. Results - CT scan: No abnormalities in the urinary tract, no kidney stones or masses detected. Plan - Schedule a cystoscopy outpatient - Send urine sample to pathology for cytology - If cystoscopy and urine pathology are negative, refer to nephrology for further kidney evaluation. [facility] Surgical History No pertinent past surgical history Social History Housing: Apartment Patient Tobacco Use Status: Never used Tobacco e-Cigarette/Vaping Use: Never Used service: No Current occupational status: employed Cognitive needs: No Hearing needs: No Vision needs: No Review of Systems Const All systems reviewed & are unremarkable except as noted in HPI and below Reports no additional complaints Eyes Reports no additional complaints ENT Reports no additional complaints Card Reports no additional complaints Resp Reports no additional complaints GI Reports no additional complaints Reports as per HPI Musc Reports no additional complaints Skin/Breast Reports system reviewed and no additional complaints, except as documented Neuro Reports no additional complaints Psych Reports no additional complaints Endo Reports no additional complaints Jeremy/Lymph Reports no additional complaints Aller/Immun Reports no additional complaints Physical Exam Const General: healthy appearing, no acute distress and well developed Orientation/consciousness: patient oriented x3 HEENT Head: Yes normocephalic and Yes atraumatic Eyes Conjunctivae: conjunctivae normal Neck Neck: Yes normal visual inspection Chest Chest palpation & inspection: normal inspection of the chest Resp Effort & Inspection: normal respiratory effort GI Inspection: Yes normal to inspection Palpation (GI): Soft to palpation Neuro General: patient oriented x3 Psych Appearance: grossly normal Affect: normal affect Results AMB Urinalysis, Automated UA Leukoctes 0 Magalie/uL Last Edit by Megan Cardoso on 01/29/25 16:36 UA Nitrite Negative Last Edit by Megan Cardoso on 01/29/25 16:36 UA Urobilinogen 17 mg/dL Last Edit by Megan Cardoso on 01/29/25 16:36 UA Protein 0.3 mg/dL Last Edit by Megan Cardoso on 01/29/25 16:36 UA pH 6.0 Last Edit by Megan Cardoso on 01/29/25 16:36 UA Blood 0 Paul/uL Last Edit by Megan Cardoso on 01/29/25 16:36 UA Specific [place] 1.020 Last Edit by Megan Cardoso on 01/29/25 16:36 UA Ketone Positive Last Edit by Megan Cardoso on 01/29/25 16:36 UA Bilirubin 0 mg/dL Last Edit by Megan Cardoso on 01/29/25 16:36 UA Glucose 0 mg/dL Last Edit by Megan Cardoso on 01/29/25 16:36 Assessment & Plan Assessment & Plan (1) Hematuria: Code(s): R31.9 - Hematuria, unspecified Category: Medical (2) Proteinuria: Code(s): R80.9 - Proteinuria, unspecified Category: Medical Plan Plan - Schedule a cystoscopy outpatient - Send urine sample to pathology for cytology - If cystoscopy and urine pathology are negative, refer to nephrology for further kidney evaluation. Orders: Orders AMB Urinalysis Automated Today Z13.9 - Encounter for screening, unspecified Urine Cytology Today R31.29 - Other microscopic hematuria Patient Instructions: The patient had an opportunity to ask questions regarding treatment plan. The patient expressed understanding and agreement with the above treatment plan. The patient is aware they should contact our office by phone for worsening of their current condition or the appearance of new symptoms. Compliance is encouraged with any medications and followup testing that is ordered. It is a privilege to be allowed the opportunity to participate in the urologic care of your patient. If you have any questions or concerns regarding treatment for the above conditions please do not hesitate to contact me. The office telephone contact is [phone]. This note is constructed in part using voice recognition software. While every effort has been made to ensure accuracy area cleaner errors may have been included. Yours sincerely, Jacqui Hoover MD Scribe Plan - Not visible on output: Patient was informed and verbally consented to the use of an ambient scribe for clinic note documentation during this visit. Coding Diagnoses Hematuria R31.9 Proteinuria R80.9
== END 2025-01-29 15:43 | disposition home or self-care (01) ==
LOC: HO.HUSH 15:04
PROVIDERS: PCP Nurse Practitioner Family; Visit Provider Urology
DX: Z13.9 Encounter for screening, unspecified (principal)

== ENCOUNTER 2025-02-15 15:31 | Emergency (ER) | payer OTHER, SELFPAY ==
--- NOTE | 2025-02-15 15:39 | ED_ITS ---
HPI - General Adult General Chief complaint: Extremity Injury, Upper Stated complaint: needs new splint left hand inj / surgery on 01/14 Time Seen by Provider: 02/15/25 16:11 Source: patient Mode of arrival: ambulatory Limitations: no limitations History of Present Illness ED Provider: Lucia Powell PA-C HPI narrative: Patient is a 29 year old assigned male at with a history of left hand surgery at [facility] in January presenting to the emergency department today with a broken splint. Patient states that he removed his left hand splint to wash it and lost 2 straps, one for his fingers and one for the brace itself. Patient states that he called the orthopedic office and they weren't able to get him in. Patient denies any dizziness, lightheadedness, abdominal pain, nausea, vomiting, fever, chills, blurry vision, double vision, loss of vision, chest pain, difficulty breathing, shortness of breath, back pain, night sweats, pain with urination, increased urinary frequency, increased urinary urgency, blood in his urine or stool, syncope or a near syncopal episode, recent trauma or falls, bowel incontinence, bladder incontinence, or any other complaints at this time. Relieving factors: none Exacerbating factors: none Associated symptoms: denies other symptoms Treatments prior to arrival: none Related Data Home Medications ?Medication ?Instructions ?Recorded ?Confirmed No Known Home Meds 12/24/24 12/24/24 Allergies Allergy/AdvReac Type Severity Reaction Status Date / Time penicillin V Allergy Unknown Hives, Verified 02/15/25 15:46 Anaphylaxis Penicillins (PENICILLINS) Allergy Unknown UNKNOWN Verified 02/15/25 15:46 Review of Systems Constitutional: Constitutional: Reports no additional constitutional complaints, Denies chills, Denies fever(s) and Denies night sweats Eyes: Eyes: Reports no additional eye complaints, Denies blurry vision, Denies change in vision, Denies diplopia, Denies eye discharge, Denies loss of vision and Denies eye pain ENT: Denies dizziness Cardiovascular: Cardiovascular: Reports no additional cardiovascular complaints, Denies chest pain, Denies lightheadedness, Denies Loss of Consciousness and Denies dyspnea Respiratory: Respiratory: Reports no additional respiratory complaints and Denies dyspnea Gastrointestinal: Gastrointestinal: Reports no additional gastrointestinal complaints, Denies abdominal pain, Denies melena, Denies hematochezia, Denies change in bowel habits and Denies change in stool character Genitourinary: Genitourinary: Reports no additional male genitourinary complaints, Denies hematuria, Denies oliguria, Denies difficulty urinating, Denies dysuria, Denies urinary frequency, Denies urinary hesitancy, Denies urinary incontinence and Denies urinary urgency Musculoskeletal: Musculoskeletal: Reports no additional musculoskeletal complaints, Denies numbness and Denies tingling Neurologic: Denies dizziness, Denies loss of vision, Denies numbness and Denies tingling Psychiatric: Psychiatric: Reports no additional psychiatric complaints Endocrine: Endocrine: Reports no additional endocrine complaints Hematologic/Lymphatic: Hematologic/Lymphatic: Reports no additional hematologic/lymphatic complaints Allergic/Immunologic: Allergic/Immunologic: Reports no additional allergic/immunologic complaints PMFSH Past Medical History Attestation statement: The following information was validated with the patient. Source: old records reviewed and nursing notes reviewed Surgical History No pertinent past surgical history Social History Social History Housing: Apartment Patient Tobacco Use Status: Never used Tobacco e-Cigarette/Vaping Use: Never Used Advance Directives: No Advance Directives Information Provided: No service: No Current occupational status: employed Cognitive needs: No Hearing needs: No Vision needs: No Physical Exam ED Vital Signs: Vital Signs - 24 hr 02/15/25 15:41 02/15/25 16:18 Temperature 98.6 F 98.6 F Pulse Rate 86 86 Respiratory Rate 16 16 Blood Pressure 132/70 132/70 Pulse Oximetry 97 97 Oxygen Delivery Method Room Air Room Air BMI result Body Mass Index 29.9 Const General: cooperative, no acute distress, alert and awake Nutritional Appearance: well nourished Orientation/consciousness: patient oriented x3 HENMT Head: Yes normal to inspection and Yes atraumatic Ears: hearing grossly normal bilaterally and external ears normal General nose exam: Normal external nose present, no nasal discharge noted and no epistaxis Face and sinus: Yes normal facial exam, No abrasion and No laceration Mouth: Normal oral and palatal mucosa present, no drooling and no muffled voice Eyes General: appearance normal, both eyes and all related structures Periorbital: periorbital findings normal Eyelids: Yes eyelids normal Conjunctivae: conjunctivae normal Pupils: Equal, round and reactive pupils present EOM: EOMs intact bilaterally Neck Neck: Yes normal visual inspection, Yes full ROM and Yes no lymphadenopathy Resp Effort & Inspection: normal respiratory effort and able to speak in complete sentences Neuro General: patient oriented x3, moves all extremities and CN's II-XI intact bilaterally Cranial nerves: Yes Equal, round and reactive pupils present Cognition (Neuro): normal cognition Extrem Other: splint present to the left wrist / hand well healed surgical scar to the dorsal left hand General: Yes capillary refill normal Psych Appearance: grossly normal Mental Status: mental status grossly normal Affect: normal affect Attitude: cooperative Thought process: Normal thought process present Thought content: Normal thought content present Insight: Good insight present (Psych) Course Course Course Narrative: RME performed by Lucia Powell PA-C. Patient is a 29 year old assigned male at presenting to the emergency department requesting a new splint for his left hand. Patient states that he had surgery on his left hand on 01/14/2025 where he had 3 ligaments in his left 3rd, 4th, and 5th finger fixed as well as a nerve. Patient states that he went to wash his splint and lost it - now having pain. Detailed physical exam and review of systems are deferred to the field installer. Patient placed back in the waiting room pending room availability. Medical Decision Making Medical Decision Making MDM Narrative: Patient is a 29 year old assigned male at with a history of left hand surgery at [facility] in January presenting to the emergency department today with a broken splint. Patient's physical exam was as noted and consistent with a well healing left hand surgery. Nursing staff contacted the OT department who requested the patient be sent up to their clinic to have his splint repaired. I explained my physical exam findings to the patient. I answered all questions asked by the patient. I stressed the importance of the patient taking his medication as directed (either prescribed or as the over the counter packaging recommends). I stressed the importance of the patient following up with his primary care provider, the OT office as directed today, and his orthopedic surgeon as scheduled later this month. I stressed the importance of the patient returning to the emergency department immediately if he were to develop any dizziness, shortness of breath, difficulty breathing, chest pain, blurry vision, loss of vision, nausea, vomiting, abdominal pain, fever, chills, back pain, or any other complaints. Patient verbalized agreement and understanding with this treatment plan and discharge. Differential Diagnosis Differential Diagnoses: The differential diagnosis associated with the presentation includes Broken left hand / wrist splint Admission/Observation Consideration of admission/observation: Escalation of care including admission/observation considered Patient would have been admitted to the hospital had his clinical presentation warranted hospital admission. Discharge Plan Discharge Clinical Impression: Postop check Patient Disposition: Home, Self-Care Additional Instructions: Proceed to the OT office for replacement of your splint. Follow up with your primary care provider and your orthopedic surgeon as directed. Return to the emergency department immediately if your symptoms worsen or if you develop any numbness, tingling, dizziness, shortness of breath, difficulty breathing, chest pain, blurry vision, loss of vision, nausea, vomiting, abdominal pain, fever, chills, back pain, or any other complaints. Please see the information below about our Patient Portal. If you are not yet enrolled in the [facility] Patient Portal, you will receive an enrollment email invitation following your visit to any [facility] setting. You may also self-enroll in the Patient Portal by visiting our website: [email or web address] The following information is required to access the Patient Portal: - Your [facility] Medical Record Number - Your personal home email address (must match what is in your electronic medical record, Registration staff can assist with this) - Name - Date of Capabilities of the Patient Portal: - Message some providers - View upcoming appointments - Access your health summary, medical history, and visit history - View current conditions and allergies - View procedure and lab results - View your medications, including guidelines, side effects, and precautions - Complete pre-appointment questionnaires requested by your provider - Ready summary reports of your office visits and procedures To access the Patient Portal Mobile [employer], follow these directions: - Search [employer] in the Yee Store or [employer] Store - Download the Yee - Search for [facility] - Enter your login/password Prescriptions: No Action No Known Home Meds Stand Alone Forms: Work/School Release Interventions: ED Discharge Assessment Last Done: 02/15/25 16:18 Discharge Date/Time: 02/15/25 16:18 Print Language: Pashto
[2025-02-15 15:41] VITALS: BP 132/70; PULSE 86; RESP 16; TEMP 37; O2SAT 97; BMI 29.9
--- OUTSIDE RECORDS SUMMARY | 2025-02-15 16:17 | XMS_ITS | Clinical Summary ---
Author Organization [facility] ity Address [address] [place] [address] Care Team Providers Care Acoustical Carpenter Name Role Phone Unavailable Primary Care Provider [...] 2012 COVID-19 Vaccine (2023-2 5 season) 2024 Depression Screening 07/15/2024 Influenza Vaccine (#1) 2025 HIB Vaccines Aged [...]
--- OUTSIDE RECORDS SUMMARY | 2025-02-15 16:17 | XMS_ITS | Clinical Summary ---
Author Organization [facility] Address [address] [place] [address] Phone Care Team Providers Care Fishing Captain Name Role Phone Unavailable Primary Care Provider [...]
--- OUTSIDE RECORDS SUMMARY | 2025-02-15 16:17 | XMS_ITS | Clinical Summary ---
Author Organization [facility] Facility Address [address] [address] Care Team Providers Care Account Representative Name Role Phone Jarod Cooper MD Primary Care Provider [phone]- [phone] Medications ASPIRIN 81 PO TAKE 1 TABLET [...] to complete this topic Insurance [place] [facility] [place] [facility] Member Subscriber Plan / Payer (Ef fective 2020-Present) Name:Cristal Aceves Relation to Subscriber:Self Name:Cristal Aceves Payer ID:Not on file Type:Not on file Address: [place] [id number] Care Teams Account Representative Relationship Specialty Start Date End Date Jarod Cooper MD [address] [place] [phone] PCP - General Internal Medicine 09/27/20
[2025-02-15 16:18] VITALS: BP 132/70; PULSE 86; RESP 16; TEMP 37; O2SAT 97
== END 2025-02-15 16:18 | disposition home or self-care (01) ==
PROVIDERS: Emergency Provider Emergency Medicine; PCP Nurse Practitioner Family
DX: S69.92XA Unspecified injury of left wrist, hand and finger(s), initial encounter (principal); Z47.89 Encounter for other orthopedic aftercare; X58.XXXA Exposure to other specified factors, initial encounter; Y93.9 Activity, unspecified; Y92.9 Unspecified place or not applicable; Y99.9 Unspecified external cause status
CPT/HCPCS: 99282

== ENCOUNTER 2025-02-17 15:01 | Outpatient (RCR) | payer OTHER, SELFPAY ==
--- NOTE | 2024-12-03 11:00 | MHC.PT.EP ---
[facility] [place] [facility] [place] Office [place] Office [address] Nga Lee [address] [phone] F: [phone] F: [phone] F: [phone] F: [phone] Physical Therapy Plan of Care Date of Evaluation: 12/02/24 Date of Surgery: n/a Diagnosis: Other muscle spasm Trapezius muscle spasm Assessment: Pt is a pleasant 29yo M who presents to PT with R neck and shoulder pain. He reports history of R shoulder dislocations. He presents to PT with current impairments in pain, decreased ROM, decreased strength, soft tissue restrictions, and impaired posture. He is limited functionally by lifting, reaching out to the side, reaching behind head, and reaching behind back. He is a good candidate for skilled PT in order to address current impairments to facilitate return to PLOF He is recommended to be seen 2x/week for 4 weeks and will be reassessed at that time Frequency and Duration: The patient will be seen 2x/week for 4 weeks Short Term Goals: Pt will be I with HEP to promote self management of symptoms Pt will improve R shoulder flexion by at least 10 degrees Correction Goals: Pt will achieve full R shoulder ROM to assist with reaching and lifting Pt will achieve full cervical ROM to assist with overhead ADLs Pt will demonstrate improvements in function as evidenced by statistically significant improvement in SPADI outcome measure Treatment Plan: Modalities to reduce pain, spasms and effusion. Manual therapy to restore motion and function. Therapeutic exercise to improve strength and flexibility. Neuromuscular re-education for posture and balance. Therapeutic activities to return to functional activities of daily living. Electronically signed by: Amanda Borden, PT, DPT Please sign and return to therapist. Thank you for your referral.
--- NOTE | 2025-04-27 15:42 | MHC.PT.DC ---
[facility] [place] [facility] [place] [facility] [place] [facility] [address] Nga Lee [address] [phone] F: [phone] F: [phone] F: [phone] F: [phone] Physical Therapy Discharge Report Diagnosis: Other muscle spasm Trapezius muscle spasm Date of Surgery: n/a Date of Evaluation: 12/02/24 Date of Discharge: 04/27/25 Treatments to Date: 8 Cancellations to Date: 4 No Shows to Date: 2 Discharge Status: Patient Elected to Stop Discharge Summary: Pt was seen for skilled PT from 12/02/24-02/04/25. His last attended and scheduled appointment was 02/04/25. He is being D/C from skilled PT as he has not attended or called to reschedule in > 30 days. Pt current level of function unknown at this time Electronically signed by: Amanda Harding, PT, DPT Please sign and return to therapist. Thank you for your referral.
== END 2025-04-27 15:42 | disposition home or self-care (01) ==
LOC: HO.PT 15:01
PROVIDERS: PCP Nurse Practitioner Family; Visit Provider Physician Assistant
DX: M62.838 Other muscle spasm (principal)
CPT/HCPCS: 97110; 97161; 97530

== ENCOUNTER 2025-02-24 16:21 | Outpatient (AMB) | payer OTHER, SELFPAY ==
--- OUTSIDE RECORDS SUMMARY | 2025-02-24 16:23 | XMS_ITS | Clinical Summary ---
Author Organization [facility] ity Address [address] [place] [address] Care Team Providers Care Dispatch Specialist Name Role Phone Unavailable Primary Care Provider [...]
--- OUTSIDE RECORDS SUMMARY | 2025-02-24 16:23 | XMS_ITS | Clinical Summary ---
Author Organization [facility] Address [address] [place] [address] Phone Care Team Providers Care Braddisher Name Role Phone Unavailable Primary Care Provider [...] 11/26/2016 11/26/2006, 07/22/1998, 12/13/1995, Additional history exists HPV Vaccines (1 - 3-dose SCDM series) 2020 COVID-19 Vaccine ( - 2023- season) 2024 Influenza Vaccines (#1) 2025 Hepatitis [...]
[2025-02-24 16:27] VITALS: BP 102/60; PULSE 88; TEMP 36.9; O2SAT 97; BMI 29.7
--- NOTE | 2025-02-24 16:27 | MHC.OFFWIV ---
Intake Vital Signs 02/24/25 16:27 Height 5 ft 10 in Weight 207 lb BMI 29.7 BP 102/60 Blood Pressure Location Rt brachial Pulse 88 Pulse Source Pulse Oximeter Temp 98.4 F Temp Source Oral Pulse Oximetry (%) 97 Oxygen Delivery Method Room Air Intake Visit Reasons: EP bad pain in LT hand that had surgery on... Intake Note: pt presents with concern for left shoulder pain and radiating pain from elbow to middle finger s/p sx 01/14/25 for 3 tendon repairs. pain present 5.5 weeks, undergoing OT 3x/wk Patient Tobacco Use Status: Never used Tobacco Allergies penicillin V Allergy (Unknown, Verified 02/15/25 15:46) Hives, Anaphylaxis Do you need a note to return to daycare/school/sports/work: Yes HPI HPI Comments History of Present Illness Details History of Present Illness - The patient is a 29-year-old male presenting with severe pain following tendon and nerve repair surgery. - The injury occurred on January 06 due to a work accident involving sheet metal falling on his hand, resulting in lacerations to three tendons and a nerve. - Surgical repair was performed on January 14. - Post-surgery, the patient reports persistent severe pain, inability to move fingers, and wrist immobility. - Has been having a burning sensation to the hand and lower arm. - The patient has been unable to contact the surgeon for follow-up and is scheduled to see them on the . - The patient has been advised by an occupational therapist that he may have developed carpal tunnel syndrome and frozen finger joints. - The patient experiences extreme shoulder pain due to muscle loss from disuse of the left arm. - Pain radiates from the shoulder down to the hand, exacerbated by movement. - The patient attends therapy three times a week, which does not exacerbate the pain. - Current pain management includes alternating Tylenol and ibuprofen every three hours, causing gastrointestinal discomfort. - The patient has been unable to reach his surgeon for additional pain management options. - He denies numbness, tingling, or cold fingers. Physical Exam General: Cooperative, healthy appearing, comfortable, no acute distress and well developed Respiratory: Normal respiratory effort and able to speak in complete sentences. Clear to auscultation bilaterally Cardiovascular: Regular rate and rhythm. Normal S1 and S2. Cap refill is less than 3 seconds on the left. Skin: No rashes or lesions noted Neuro: Patient oriented x3. Sensation intact. Extremities: Limited movement in left wrist and fingers due to splint post-surgery. FROM of the left elbow and shoulder. TTP of the anterior shoulder and bicep. Negative can test. Patient was informed and verbally consented to the use of an ambient scribe for clinic note documentation during this visit. [facility] Surgical History No pertinent past surgical history Social History Housing: Apartment Patient Tobacco Use Status: Never used Tobacco e-Cigarette/Vaping Use: Never Used service: No Current occupational status: employed Cognitive needs: No Hearing needs: No Vision needs: No Review of Systems Const All systems reviewed & are unremarkable except as noted in HPI and below Physical Exam Vital Signs: Last Vital Signs Temp 98.4 F 02/24/25 16:27 Pulse 88 02/24/25 16:27 BP 102/60 02/24/25 16:27 Pulse Ox 97 02/24/25 16:27 Oxygen Delivery Method Room Air 02/24/25 16:27 BMI result Body Mass Index 29.7 Assessment & Plan Assessment & Plan (1) Post-operative pain: Code(s): G89.18 - Other acute postprocedural pain (2) Left shoulder strain: Code(s): S46.912A - Strain of unspecified muscle, fascia and tendon at shoulder and upper arm level, left arm, initial encounter Qualifiers: Encounter type: initial encounter Qualified Code(s): S46.912A - Strain of unspecified muscle, fascia and tendon at shoulder and upper arm level, left arm, initial encounter Plan Plan - Recommend wearing a sling to support the shoulder and reduce pain from movement. - Follow-up with the surgeon on the for further evaluation and management of post-surgical complications. - Consider alternative pain management strategies - Gabapentin 100 mg once a day at bedtime - Naproxen BID for pain - Continue occupational therapy to improve mobility and function of the hand and wrist. - Follow up with PCP for post-op appt on Medications: New gabapentin 100 mg PO BEDTIME 30 caps 0RF naproxen 500 mg PO Q12H PRN 20 tabs 0RF pain 7 days Coding Level of Care Code Est Pt Level 4 (61040) Diagnoses Post-operative pain G89.18 Strain of left shoulder, initial encounter S46.912A Encounter type: initial encounter
== END 2025-02-24 16:59 | disposition home or self-care (01) ==
PROVIDERS: PCP Nurse Practitioner Family; Visit Provider Physician Assistant Medical
DX: G89.18 Other acute postprocedural pain (principal); S46.912A Strain of unspecified muscle, fascia and tendon at shoulder and upper arm level, left arm, initial encounter

== ENCOUNTER → 2025-02-24 16:21 | Outpatient (BNVA) | payer OTHER, SELFPAY | PROVIDERS: PCP Nurse Practitioner Family; Visit Provider Physician Assistant Medical | DX: S46.912A Strain of unspecified muscle, fascia and tendon at shoulder and upper arm level, left arm, initial encounter (principal); G89.18 Other acute postprocedural pain; X58.XXXA Exposure to other specified factors, initial encounter; Y93.9 Activity, unspecified; Y92.9 Unspecified place or not applicable; Y99.9 Unspecified external cause status | CPT/HCPCS: 99212 ==

== ENCOUNTER 2025-03-04 06:49 | Outpatient (AMB) | payer OTHER, SELFPAY ==
--- OUTSIDE RECORDS SUMMARY | 2025-03-04 06:52 | XMS_ITS | Clinical Summary ---
Author Organization [facility] Address [address] [place] [address] Phone Care Team Providers Care Cable Installation Technician Name Role Phone Unavailable Primary Care [...]
--- OUTSIDE RECORDS SUMMARY | 2025-03-04 06:52 | XMS_ITS | Clinical Summary ---
Author Organization [facility] ity Address [address] [place] [address] Care Team Providers Care Tile Sorter Name Role Phone Unavailable Primary Care Provider [...]
--- OUTSIDE RECORDS SUMMARY | 2025-03-04 06:52 | XMS_ITS | Clinical Summary ---
Author Organization [facility] Facility Address [address] [address] Care Team Providers Care Defence Intelligence Analyst Name Role Phone Jarod Cooper MD Primary Care Provider [phone]- [phone] Medications ASPIRIN 81 PO TAKE 1 TABLET [...] age to complete this topic Insurance [place] [facility] [place] [facility] Member Subscriber Plan / Payer (Ef fective 2020-Present) Name:Cristal Aceves Relation to Subscriber:Self Name:Cristal Aceves Payer ID:Not on file Type:Not on file Address: [place] [phone] Care Teams Defence Intelligence Analyst Relationship Specialty Start Date End Date Jarod Cooper MD [address] [place] [phone] PCP - General Internal Medicine 09/27/20
--- NOTE | 2025-03-04 07:35 | MHC.PC.OV ---
Intake Visit Reasons: fmla Allergies penicillin V Allergy (Unknown, Verified 03/04/25 07:39) Hives, Anaphylaxis Medication List - Last Reconciled 03/04/25 by GILLIAN Yeboah gabapentin 100 mg PO BEDTIME naproxen 500 mg PO Q12H PRN 7 days Tobacco use date assessed: 12/24/24 Dental Screening Dental Screen Date: 12/24/24 HPI fmla HPI Details History of Present Illness The patient is a 29-year-old male presenting for a telehealth follow-up and FMLA paperwork completion. The patient sustained a severe laceration to his left hand in early January due to an accident involving sheet metal at work. He underwent surgery on January 14, 2025, to repair three ligaments in his left third, fourth, and fifth fingers, as well as a nerve. Post-surgery, the patient has been experiencing significant recovery challenges, including the development of carpal tunnel syndrome. He continues to have limited mobility and is following up regularly with his hand surgeon and occupational therapist. The patient reports ongoing numbness and occasional locking of his hand, which are expected to take several months to resolve. He denies any signs of infection and was recently seen by his hand surgeon. Review of Systems - Neurological: Reports numbness and occasional locking of the left hand. Denies signs of infection. -denies any fevers or chills Plan The patient will continue to follow up with his hand surgeon and occupational therapist to monitor recovery progress and manage carpal tunnel syndrome. He is advised to adhere strictly to his therapy appointments to optimize recovery outcomes. The patient is currently on a one-hand restriction and is not cleared for work by the surgeon. It is anticipated that his recovery will take several months, during which time he will remain off work. Discussion Notes I discussed with the patient the importance of continuing his follow-up with the hand surgeon and occupational therapist to ensure optimal recovery. We reviewed his current restrictions and the expected timeline for recovery, emphasizing the need for patience and adherence to therapy. Patient Instructions - Continue attending all scheduled appointments with the hand surgeon and occupational therapist. - Follow the one-hand restriction and avoid activities that may strain the hand. - Monitor for any signs of infection and report them immediately. [facility] Medical History (Updated 03/04/25 @ 07:36 by GILLIAN Yeboah) Laceration of left hand Surgical History No pertinent past surgical history Social History Housing: Apartment Patient Tobacco Use Status: Never used Tobacco e-Cigarette/Vaping Use: Never Used service: No Current occupational status: employed Cognitive needs: No Hearing needs: No Vision needs: No Questionnaire Thrive Questionnaire Date Thrive assessed: 09/22/24 I am a: Patient What is your living situation today?: I have a steady place to live Within the past 12 months, did the food you bought not last and you didn't have the money to get more?: Never true Within the past 12 months, did you worry whether your food would run out before you got money to buy more?: Never true Do you have trouble paying for medicines?: No Do you have trouble getting transportation to medical appointments?: No Do you have trouble paying your heating and electricity bill?: No Do you have trouble taking care of your child, family member or friend?: I choose not to answer this question Do you have trouble with day-to-day activities such as bathing, preparing meals, shopping, managing finances, etc.?: No Are you currently unemployed and looking for a job?: Yes Are you interested in more education?: Yes Please select the resources that you would like help with: None Currently or been in a relationship where the following occur: No concerns reported THRIVE Score: 0 SALVADOR-7 AMB Questionnaire SALVADOR-7 Date SALVADOR - 7 assessed: 12/24/24 Source: Developed by Drs. David Madison, Jasmine Grant, Karan Vaughn and colleagues, with an educational stephanie from [employer]. Physical exam (Primary Care) Tobacco/Smoking Status: Tobacco use Status Tobacco use date assessed 12/24/24 12/24/24 14:20 Patient Tobacco Use Status Never used Tobacco 02/24/25 16:32 e-Cigarette/Vaping Use Never Used 12/24/24 14:20 Thrive Assessment: Date of Thrive Assessment Date Thrive assessed 09/22/24 01/19/25 10:06 Currently or been in a relationship where the following occur: No concerns reported Coding Level of Care Code Tele Est Pt Level 3 (69536) Diagnoses Laceration of left hand S61.412A Assessment & Plan Assessment & Plan (1) Laceration of left hand: Comment: 01/14/2025 ligament repair and nerve repair Code(s): S61.412A - Laceration without foreign body of left hand, initial encounter Category: Medical Plan .
== END 2025-03-04 09:07 | disposition home or self-care (01) ==
LOC: HO.HMCC 06:50
PROVIDERS: PCP Nurse Practitioner Family; Visit Provider Nurse Practitioner Family
DX: S61.412A Laceration without foreign body of left hand, initial encounter (principal); Z04.2 Encounter for examination and observation following work accident

== ENCOUNTER 2025-04-14 14:15 | Outpatient (REF) | payer OTHER, SELFPAY ==
--- OUTSIDE RECORDS SUMMARY | 2025-04-14 15:51 | XMS_ITS | Clinical Summary ---
Author Organization [facility] Facility Address [address] [address] Care Team Providers Care Wood And Hardware Outfitter Name Role Phone Jarod Cooper MD Primary Care Provider +1- [phone] Medications ASPIRIN 81 PO TAKE 1 TABLET [...] age to complete this topic Insurance Medicaid [place] [facility] Medicaid [place] [facility] Member Subscriber Plan / Payer (Ef fective 2020-Present) Name:Cristal Aceves Relation to Subscriber:Self Name:Cristal Aceves Payer ID:Not on file Type:Not on file Address: [place] [id number] Care Teams Wood And Hardware Outfitter Relationship Specialty Start Date End Date Jarod Cooper MD [address] [place] [phone] PCP - General Internal Medicine 09/27/20
[2025-04-15 11:35] LABS: Chlamydia pneumoniae PCR Not Detected (Not Detect.); Coronavirus 229E PCR Not Detected (Not Detect.); Coronavirus HKU1 PCR Not Detected (Not Detect.); Coronavirus NL63 PCR Not Detected (Not Detect.); Coronavirus OC43 PCR Not Detected (Not Detect.); RSV PCR Not Detected (Not Detect.); Rhino/Enterovirus PCR Detected (Not Detect.)
[2025-04-15 11:40] LABS: Influenza A H1 PCR Not Detected (Not Detect.); Influenza A H1-2009 PCR Not Detected (Not Detect.); Influenza A H3 PCR Not Detected (Not Detect.); SARS-CoV-2 PCR Not Detected (Not Detect.)
== END 2025-04-14 14:16 | disposition home or self-care (01) ==
LOC: HO.LAB 14:15
PROVIDERS: PCP Nurse Practitioner Family; Visit Provider Physician Assistant
DX: J06.9 Acute upper respiratory infection, unspecified (principal); J02.9 Acute pharyngitis, unspecified; R29.898 Other symptoms and signs involving the musculoskeletal system; M25.512 Pain in left shoulder
CPT/HCPCS: 87633; 87880; 99212

== ENCOUNTER 2025-04-14 14:15 | Outpatient (AMB) | payer OTHER, SELFPAY ==
[2025-04-14 14:22] VITALS: BP 132/80; PULSE 81; TEMP 37; O2SAT 98; BMI 29.7
--- NOTE | 2025-04-14 14:22 | AM.OFFWIN_ITS ---
Intake Vital Signs 04/14/25 14:22 Height 5 ft 10 in Weight 207 lb BMI 29.7 BP 132/80 Blood Pressure Location Rt brachial Position Sitting Pulse 81 Pulse Source Pulse Oximeter Temp 98.6 F Temp Source Oral Pulse Oximetry (%) 98 Intake Visit Reasons: EP-sore throat, lt shoulder pain, lt hand pain Intake Note: pt is here for sore throat and mucus. patients son has strep throat Patient Tobacco Use Status: Never used Tobacco Allergies penicillin V Allergy (Unknown, Verified 04/14/25 14:22) Hives, Anaphylaxis Do you need a note to return to daycare/school/sports/work: Yes HPI HPI Comments History of Present Illness Details History - The patient is a 29-year-old male pres enting with symptoms of a viral upper respiratory infection and left shoulder pain. - Reports nasal discharge and throat merlin n for over a week, with no fever or cough. - Rapid strep test negative; further vir al testing initiated. - Using xtje-ajf-meqhdbu medications lik e NyQuil and DayQuil without significant relief. - Reports left shoulder pain and weaknes s post hand surgery for tendon and nerve repair. - Using a sling and attending occupation al therapy for the hand, but shoulder pain has worsened. - History of muscle loss in the arm post -surgery, contributing to shoulder deconditioning. Physical Exam General: Cooperative, healthy appearing, comfortable and no acute distress Orientation/consciousness: Patient oriented x3 Limitations: No limitations Head: Normal to inspection Ears: Hearing grossly normal bilaterally, external ears normal and TM's normal bilaterally Nose: Normal external nose present, Normal nares present and Nasal discharge present Face and sinus: Normal facial exam and Yes sinuses nontender Mouth: Normal oral and palatal mucosa present and moist mucous membranes Throat: Tonsils red and a little bit swollen, Yes uvula midline. Posterior oropharynx erythema, no exudates Eyes: Appearance normal, both eyes and all related structures Neck: Normal visual inspection, full ROM Respiratory: Normal respiratory effort, able to speak in complete sentences, Actively coughing, no respiratory distress, not tachypneic, no tripod positioning and no use of accessory muscles Skin: No rashes or lesions noted Neuro: Patient oriented x3 Extremities: Normal to inspection and Yes no clubbing, cyanosis or edema, surgical scars on right dorsal hand Review of Systems - General: Denies fever - Respiratory: Denies cough, dyspnea, or wheezing - ENT: Reports nasal discharge and throa t pain; denies ear pain or sinus tenderness - Musculoskeletal: Reports left shoulder pain and weakness All systems reviewed and are unremarkable except as noted in HPI [facility] Medical History (Updated 04/14/25 @ 14:49 by Crystal Morocho PA-C) Laceration of left hand Surgical History (Updated 03/16/25 @ 08:47 by Jane Diego RN) Hx of hand surgery No pertinent past surgical history Social History Housing: Apartment Patient Tobacco Use Status: Never used Tobacco e-Cigarette/Vaping Use: Never Used service: No Current occupational status: employed Cognitive needs: No Hearing needs: No Vision needs: No Physical Exam Vital Signs: Last Vital Signs Temp 98.6 F 04/14/25 14:22 Pulse 81 04/14/25 14:22 BP 132/80 04/14/25 14:22 Pulse Ox 98 04/14/25 14:22 BMI result Body Mass Index 29.7 Assessment & Plan Assessment & Plan (1) Muscular deconditioning: Code(s): R29.898 - Other symptoms and signs involving the musculoskeletal system Plan: Plan Patient was informed and verbally consented to the use of an ambient scribe for clinic note documentation during this visit. 1. Viral Upper Respiratory Infection - Symptomatic treatment with ocxt-iqh-jlbvzoo medications such as NyQuil, DayQuil, and Tylenol for fever. - Viral panel testing conducted; results pending. - Consider bacterial infection and initiate antibiotics if viral panel is negative, send Zpak. 2. Muscular Deconditioning Of The Left Shoulder - Referral to physical therapy for evaluation and strengthening exercises. - Continue occupational therapy for hand rehabilitation. (2) Left shoulder pain: Code(s): M25.512 - Pain in left shoulder Qualifiers: Chronicity: acute Qualified Code(s): M25.512 - Pain in left shoulder Plan: as above (3) URI, acute: Code(s): J06.9 - Acute upper respiratory infection, unspecified Plan: as above Orders: Orders AMB Rapid Strep Screen Today Z13.9 - Encounter for screening, unspecified Resp Pathogen Panel - [facility] Today J06.9 - Acute upper respiratory infection, unspecified PT Evaluation and Treatment Today M25.512 - Pain in left shoulder, R29.898 - Other symptoms and signs involving the musculoskeletal system Coding Level of Care Code Est Pt Level 4 (74329) Diagnoses Muscular deconditioning R29.898 Acute pain of left shoulder M25.512 Chronicity: acute URI, acute J06.9
--- OUTSIDE RECORDS SUMMARY | 2025-04-14 15:27 | XMS_ITS | Clinical Summary ---
Author Organization [facility] ity Address [address] [place] [address] Care Team Providers Care Farm Crew Member Name Role Phone Unavailable Primary Care Provider [...] of 3 - 19+ 3-dose series) 2012 HPV Vaccines (1 - 3-dose SCD M series) 2020 Depression Screening 07/15/2024 COVID-19 Vaccine (1 - 2023-2 5 season) 2025 Influenza Vaccine (#1) 2025 RSV Immunization Adult Patie nts (1 - 1-dose 75+ series) 2068 HIB Vaccines Aged Out No longer eligi [...]
== END 2025-04-14 15:13 | disposition home or self-care (01) ==
PROVIDERS: PCP Nurse Practitioner Family; Visit Provider Physician Assistant
DX: R29.898 Other symptoms and signs involving the musculoskeletal system (principal); M25.512 Pain in left shoulder; J06.9 Acute upper respiratory infection, unspecified; Z13.9 Encounter for screening, unspecified

== ENCOUNTER 2025-05-07 14:40 | Outpatient (RCR) | payer OTHER, SELFPAY ==
--- NOTE | 2025-01-19 13:36 | MHC.OT.EP ---
[address] [phone] Occupational Therapy Plan of Care Patient Name: Cristal Aceves Date of Evaluation: 01/19/25 Diagnosis: Extensor Tendon Laceration Pain Location: Pt has been guarding his UE since DOI ; pt was encouraged to perform elbow ext/flex and elbow sup/pro Pain Score: 6 Pain Scale Used: Numeric (0 - 10) Aggravating Factors: Alleviating Factors: Assessment: ESTABLISH GOALS AT NEXT VISIT - NO MEASUREMENTS TAKEN DUE TO TIME CONSTRAINTS ;PT WAS 15 MINUTES LATE FOR HIS IE AND 3 ORTHOSES WERE FABRICATED TODAY ; VOLAR WRIST, RMO, AND NIGHT SPLINT W/ 30 OF MP FLEXION FOR NIGHT WEAR - WRIST IN NEUTRAL. PT PRESENTED TODAY W/ EDEMA,SUTURES IN TACT TO THE DORSUM OF HIS HAND, MINIMAL PAIN, DECREASED ROM, STRENGTH , AND FUCNTIONAL USE OF HIS L HAND. 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 Thank you once again for your referral.
== END 2025-05-10 08:01 | disposition home or self-care (01) ==
LOC: HO.OT 14:40
PROVIDERS: PCP Nurse Practitioner Family; Visit Provider Surgery
DX: S66.822D Laceration of other specified muscles, fascia and tendons at wrist and hand level, left hand, subsequent encounter (principal)
CPT/HCPCS: 29125; 97110; 97112; 97140; 97166; 97530; 97535; 97760

== ENCOUNTER 2025-06-09 06:44 | Outpatient (AMB) | payer OTHER, SELFPAY ==
--- OUTSIDE RECORDS SUMMARY | 2025-06-09 06:48 | XMS_ITS | Clinical Summary ---
Author Organization [facility] ity Address [address] [place] [address] Care Team Providers Care Civil Transportation Engineer Name Role Phone Unavailable Primary Care Provider [...] Depression Screening 07/15/2024 COVID-19 Vaccine (1 - 2024-2 6 season) 2025 Influenza Vaccine (#1) 2025 RSV [...]
--- OUTSIDE RECORDS SUMMARY | 2025-06-09 06:48 | XMS_ITS | Clinical Summary ---
Author Organization [facility] Facility Address [address] [address] Care Team Providers Care Packerhead Machine Operator Name Role Phone Jarod Cooper MD Primary Care Provider +1- [phone] Medications ASPIRIN 81 PO TAKE 1 TABLET [...] age to complete this topic Insurance Medicaid [place] [facility] Medicaid [place] [facility] Member Subscriber Plan / Payer (Ef fective 2020-Present) Name:Cristal Aceves Relation to Subscriber:Self Name:Cristal Aecves Payer ID:Not on file Type:Not on file Address: [place] [phone] Care Teams Packerhead Machine Operator Relationship Specialty Start Date End Date Jarod Cooper MD [address] [place] [phone] PCP - General Internal Medicine 09/27/20
--- NOTE | 2025-06-09 07:17 | A.OFFPC_ITS ---
Intake Visit Reasons: FMLA extension Allergies penicillin V Allergy (Unknown, Verified 06/09/25 07:19) Hives, Anaphylaxis Medication List - Last Reconciled 06/09/25 by GILLIAN Yeboah No Known Home Meds Tobacco use date assessed: 12/24/24 Dental Screening Dental Screen Date: 12/24/24 HPI FMLA extension HPI Details Chief Complaint The patient presents for a follow-up visit for a left hand laceration related to a workman's compensation case. History of Present Illness The patient is a 29 year old individual presenting for a follow-up visit for a left hand laceration sustained at the patient's workplace on 01/06/2025 when a piece of sheet metal struck the patient's hand. The patient underwent surgical exploration and repair of the EDC to the long and small finger, EDQ, ECU, and dorsal ulnar nerve on 01/14/2025. Postoperatively, the patient developed carpal tunnel syndrome, which improved with steroid injections. The patient is currently under the care of a hand specialist and is attending physical therapy at [facility] in [place]. The patient continues to experience significant pain throughout the hand, particularly in the last two fingers, which is consistent with the ulnar nerve injury. Social History - Employment: The patient's left hand in [employer] is a workman's compensation case, and the patient will remain out of work for at least another month. Health Maintenance Review of Systems - Musculoskeletal: Reports significant p ain throughout the left hand, especially in the last two fingers. - Integumentary: Denies signs and sympto ms of cellulitis. Physical Exam General: Cooperative, healthy appearing, comfortable, no acute distress and well developed Orientation: Patient oriented x3 Limitations: No limitations Head: Normal to inspection Ears: Hearing grossly normal bilaterally Nose: Normal external nose present Face and sinus: Normal facial exam Eyes: Appearance normal, both eyes and all related structures Neck: Normal visual inspection and Yes full ROM Respiratory: Normal respiratory effort and able to speak in complete sentences. Clear to auscultation bilaterally Cardiovascular: Regular rate and rhythm. Normal S1 and S2 GI: Normal to inspection. Soft to palpation and nontender Skin: No rashes or lesions noted Neuro: Patient oriented x3 Extremities: Bulging on the dorsal aspect of the left hand, which is tender. No signs and symptoms of cellulitis. Results Plan 1. Complex Laceration Of Left Hand With Tendon And Nerve Injury The patient is postoperative from a complex left hand laceration repair and continues to experience significant pain, particularly in the ulnar nerve distribution. The plan includes continuing with physical therapy, performing scar massage, and following up with the hand surgery team. The patient will be kept out of work for at least another month. Discussion Notes I have reviewed the patient's case, which is a follow-up for a workman's comp injury to the left hand. I noted the patient is still experiencing significant pain, especially in the last two fingers, which corresponds to the previously repaired dorsal ulnar nerve. We will await the next follow-up with the hand corrections specialist and monitor the patient's response to the current physical therapy regimen, which includes scar massage. I will provide a work excuse for at least another month and have advised the patient to continue following up with the orthopedic hand surgery team. Patient Instructions - Continue with your physical therapy at [facility] in [place]. - We have recommended scar massage to he lp with your symptoms. - Continue to follow up with your hand s pecialist and orthopedic team. - You will be kept out of work for at le ast another month while you recover. [facility] Medical History Fentanyl use disorder, moderate Laceration of left hand Surgical History (Updated 06/09/25 @ 07:18 by GILLIAN Yeboah) Hx of hand surgery No pertinent past surgical history Social History Housing: Apartment Patient Tobacco Use Status: Never used Tobacco e-Cigarette/Vaping Use: Never Used service: No Current occupational status: employed Cognitive needs: No Hearing needs: No Vision needs: No Questionnaire Thrive Questionnaire Date Thrive assessed: 09/22/24 I am a: Patient What is your living situation today?: I have a steady place to live Within the past 12 months, did the food you bought not last and you didn't have the money to get more?: Never true Within the past 12 months, did you worry whether your food would run out before you got money to buy more?: Never true Do you have trouble paying for medicines?: No Do you have trouble getting transportation to medical appointments?: No Do you have trouble paying your heating and electricity bill?: No Do you have trouble taking care of your child, family member or friend?: I choose not to answer this question Do you have trouble with day-to-day activities such as bathing, preparing meals, shopping, managing finances, etc.?: No Are you currently unemployed and looking for a job?: Yes Are you interested in more education?: Yes Please select the resources that you would like help with: None Currently or been in a relationship where the following occur: No concerns reported THRIVE Score: 0 SALVADOR-7 AMB Questionnaire SALVADOR-7 Date SALVADOR - 7 assessed: 12/24/24 Source: Developed by Drs. David Madison, Jasmine Grant, Karan Vaughn and colleagues, with an educational stephanie from [employer]. Physical exam (Primary Care) Tobacco/Smoking Status: Tobacco use Status Tobacco use date assessed 12/24/24 03/04/25 07:39 Patient Tobacco Use Status Never used Tobacco 04/14/25 14:22 e-Cigarette/Vaping Use Never Used 03/04/25 07:39 Thrive Assessment: Date of Thrive Assessment Date Thrive assessed 09/22/24 03/04/25 07:39 Currently or been in a relationship where the following occur: No concerns reported Telehealth Telehealth Telehealth Platform: [facility] Location of provider rendering services: practice address Location of patient: address on file Patient Identification confirmed using: Name, : Yes Telehealth method: video Patient verbally consented to treatment: Yes Patient verbally consented to billing insurance company: Yes Patient informed of any privacy concerns related to visit: Yes Minutes spent on Phone/Video with Pt.: 13 Coding Level of Care Code Tele Est Pt Level 3 (09157) Diagnoses Laceration of left hand S61.412A Hx of hand surgery Z98.890 Assessment & Plan Assessment & Plan (1) Laceration of left hand: Comment: 01/14/2025 ligament repair and nerve repair Code(s): S61.412A - Laceration without foreign body of left hand, initial encounter Category: Medical (2) Hx of hand surgery: Code(s): Z98.890 - Other specified postprocedural states Category: Surgical Plan .
== END 2025-06-09 07:40 | disposition home or self-care (01) ==
LOC: HO.HMCC 06:45
PROVIDERS: PCP Nurse Practitioner Family; Visit Provider Nurse Practitioner Family
DX: S61.412A Laceration without foreign body of left hand, initial encounter (principal); Z98.890 Other specified postprocedural states